=== PATIENT | male | born 1955 | race Caucasian/White ===

== ENCOUNTER 2016-06-24 02:51 | Emergency (ER) | payer MEDICARE, OTHER ==
[2016-06-24 03:02] VITALS: BP 119/69; PULSE 74; RESP 16; TEMP 99.5
[2016-06-24] MEDS ORDERED: SODIUM CHLORIDE 0.9% 500 ML IV STA (03:17)
--- NOTE | 2016-06-24 03:20 | ED ---
General Adult HPI - General Chief complaint: Seizure Stated complaint: poss seizure Time Seen by Provider: 06/24/16 02:55 Source: family, RN notes reviewed Mode of arrival: EMS Limitations: no limitations - History of Present Illness Initial comments: This is a 60-year-old male who presents emergency Department with a past history of Down syndrome and seizures. According to family today he was on his way to the bathroom when he became weak and went down and was unresponsive between 30 seconds 1 minute. Patient was shaking his left leg but family states that doesn't mean anything because he often doesn't when he is nervous. Family states he was completely unresponsive for 30 seconds to 1 minute. Patient did awake after that was not back to his baseline for about 10 minutes according to the family. According to family he is currently at his baseline. They state recently he has been eating and drinking normally. They deny any recent fevers cough or difficulty breathing. He also states he has had no nausea or vomiting. They don't know of any trauma or injury to the patient recently. - Related Data Previous Rx's Medication Instructions Recorded Azithromycin [Zithromax Tri-Wing] 500 mg PO DAILY #3 tab 06/24/16 Allergies Allergy/AdvReac Type Severity Reaction Status Date / Time No Known Allergies Allergy Verified 06/24/16 03:02 Review of Systems ROS Statement: Those systems with pertinent positive or pertinent negative responses have been documented in the HPI. ROS Other: All systems not noted in ROS Statement are negative. Past Medical History Additional Past Medical History / Comment(s): deaf, blind, down syndrome, History of Any Multi-Drug Resistant Organisms: None Reported Additional Past Surgical History / Comment(s): hemerrhoids, Smoking Status: Never smoker Past Alcohol Use History: None Reported Past Drug Use History: None Reported General Exam - General Exam Comments Initial Comments: GENERAL: Patient is well-developed and well-nourished. Patient is nontoxic and well- hydrated and difficult to tell if she is in any distress family states he does not communicate to them at all. ENT: Neck is soft and supple. No significant lymphadenopathy is noted. Oropharynx is clear. Moist mucous membranes. Neck has full range of motion without eliciting any pain. EYES: The sclera were anicteric and conjunctiva were pink and moist. Patient's eyes have a continuous nystagmus PULMONARY: Unlabored respirations. Good breath sounds bilaterally. No audible rales rhonchi or wheezing was noted. CARDIOVASCULAR: There is a regular rate and rhythm without any murmurs gallops or rubs. ABDOMEN: Soft and nontender with normal bowel sounds. No palpable organomegaly was noted. There is no palpable pulsatile mass. SKIN: Skin is clear with no lesions or rashes and otherwise unremarkable. NEUROLOGIC: Patient is awake and not oriented at all.. Cranial nerves II through XII are grossly intact. Motor and sensory are also intact. Normal speech, volume and content. Symmetrical smile. MUSCULOSKELETAL: Normal extremities with adequate strength and full range of motion. No lower extremity swelling or edema. No calf tenderness. LYMPHATICS: No significant lymphadenopathy is noted Limitations: no limitations Course Vital Signs 06/24/16 02:53 Temperature 99.5 F Pulse Rate 74 Respiratory 16 Rate Blood Pressure 119/69 O2 Sat by Pulse 95 Oximetry Medical Decision Making - Medical Decision Making EKG shows sinus rhythm with occasional PVC at 76 bpm WV interval is 140 QRS is 84 QT interval 366 QTC is 411. Patient's EKG shows no ST segment elevation or depression or T-wave abdomen is noted. Chest x-ray shows a possible early infiltrate. I started patient on Rocephin. CT shows no acute abnormality. - Lab Data Result diagrams: 06/24/16 03:44 06/24/16 03:44 Lab Results 06/24/16 06/24/16 06/24/16 Range/Units 03:44 03:44 03:44 WBC 10.5 (3.8-10.6) k/uL RBC 4.49 (4.30-5.90) m/uL Hgb 15.0 (13.0-17.5) gm/dL Hct 43.3 (39.0-53.0) % MCV 96.3 (80.0-100.0) fL MCH 33.3 (25.0-35.0) pg MCHC 34.6 (31.0-37.0) g/dL RDW 14.3 (11.5-15.5) % Plt Count 222 (150-450) k/uL Neutrophils % 82 % Lymphocytes % 11 % Monocytes % 5 % Eosinophils % 1 % Basophils % 1 % Neutrophils # 8.6 H (1.3-7.7) k/uL Lymphocytes # 1.1 (1.0-4.8) k/uL Monocytes # 0.5 (0-1.0) k/uL Eosinophils # 0.1 (0-0.7) k/uL Basophils # 0.1 (0-0.2) k/uL Sodium 139 (137-145) mmol/L Potassium 3.9 (3.5-5.1) mmol/L Chloride 107 (98-107) mmol/L Carbon Dioxide 24 (22-30) mmol/L Anion Gap 8 mmol/L BUN 10 (9-20) mg/dL Creatinine 0.80 (0.66-1.25) mg/dL Est GFR (MDRD) Af Amer >60 (>60 ml/min/1.73 sqM) Est GFR (MDRD) Non-Af >60 (>60 ml/min/1.73 sqM) Glucose 111 H (74-99) mg/dL Plasma Lactic Acid Niels 1.7 (0.7-2.0) mmol/L Calcium 8.8 (8.4-10.2) mg/dL Total Bilirubin 0.6 (0.2-1.3) mg/dL AST 34 (17-59) U/L ALT 21 (21-72) U/L Alkaline Phosphatase 104 (38-126) U/L Total Protein 7.4 (6.3-8.2) g/dL Albumin 3.5 (3.5-5.0) g/dL Urine Color Urine Appearance (Clear) Urine pH (5.0-8.0) Ur Specific [place] (1.001-1.035) Urine Protein (Negative) Urine Glucose (UA) (Negative) Urine Ketones (Negative) Urine Blood (Negative) Urine Nitrite (Negative) Urine Bilirubin (Negative) Urine Urobilinogen (<2.0) mg/dL Ur Leukocyte Esterase (Negative) Urine RBC (0-5) /hpf Urine WBC (0-5) /hpf Hyaline Casts (0-2) /lpf Urine Mucus (None) /hpf Urine Sperm (None) /hpf Influenza Type A RNA (Not Detectd) Influenza Type B (PCR) (Not Detectd) 06/24/16 06/24/16 Range/Units 04:13 04:13 WBC (3.8-10.6) k/uL RBC (4.30-5.90) m/uL Hgb (13.0-17.5) gm/dL Hct (39.0-53.0) % MCV (80.0-100.0) fL MCH (25.0-35.0) pg MCHC (31.0-37.0) g/dL RDW (11.5-15.5) % Plt Count (150-450) k/uL Neutrophils % % Lymphocytes % % Monocytes % % Eosinophils % % Basophils % % Neutrophils # (1.3-7.7) k/uL Lymphocytes # (1.0-4.8) k/uL Monocytes # (0-1.0) k/uL Eosinophils # (0-0.7) k/uL Basophils # (0-0.2) k/uL Sodium (137-145) mmol/L Potassium (3.5-5.1) mmol/L Chloride (98-107) mmol/L Carbon Dioxide (22-30) mmol/L Anion Gap mmol/L BUN (9-20) mg/dL Creatinine (0.66-1.25) mg/dL Est GFR (MDRD) Af Amer (>60 ml/min/1.73 sqM) Est GFR (MDRD) Non-Af (>60 ml/min/1.73 sqM) Glucose (74-99) mg/dL Plasma Lactic Acid Niels (0.7-2.0) mmol/L Calcium (8.4-10.2) mg/dL Total Bilirubin (0.2-1.3) mg/dL AST (17-59) U/L ALT (21-72) U/L Alkaline Phosphatase (38-126) U/L Total Protein (6.3-8.2) g/dL Albumin (3.5-5.0) g/dL Urine Color Yellow Urine Appearance Clear (Clear) Urine pH 6.5 (5.0-8.0) Ur Specific [place] 1.011 (1.001-1.035) Urine Protein Trace H (Negative) Urine Glucose (UA) Negative (Negative) Urine Ketones Negative (Negative) Urine Blood Negative (Negative) Urine Nitrite Negative (Negative) Urine Bilirubin Negative (Negative) Urine Urobilinogen <2.0 (<2.0) mg/dL Ur Leukocyte Esterase Small H (Negative) Urine RBC 1 (0-5) /hpf Urine WBC 3 (0-5) /hpf Hyaline Casts 1 (0-2) /lpf Urine Mucus Rare H (None) /hpf Urine Sperm Occasional H (None) /hpf Influenza Type A RNA Not Detected (Not Detectd) Influenza Type B (PCR) Not Detected (Not Detectd) Disposition Clinical Impression: Pneumonia, Seizure Disposition: HOME SELF-CARE Instructions: Pneumonia (ED) Prescriptions: Azithromycin [Zithromax Tri-Wing] 500 mg PO DAILY #3 tab Referrals: Syed Francis MD [Primary Care Provider] - 1-2 days Time of Disposition: 05:44
[2016-06-24] MEDS ORDERED: IBUPROFEN 600 MG TAB PO STA (03:29)
[2016-06-24] MEDS ORDERED: ACETAMINOPHEN TAB 500 MG TAB PO STA (03:29)
[2016-06-24 04:20] LABS: Basophils # (A) 0.1 k/uL (0-0.2); Basophils % (A) 1 %; CH 33.8; CHCM 35.3; Eosinophils # (A) 0.1 k/uL (0-0.7); Eosinophils % (A) 1 %; HCT 43.3 % (39.0-53.0); HDW 2.82; Luc # (Auto) 0.15; Luc % (Auto) 1; Lymphocytes # (A) 1.1 k/uL (1.0-4.8); Lymphocytes % (A) 11 %; MCH 33.3 pg (25.0-35.0); MCHC 34.6 g/dL (31.0-37.0); MCV 96.3 fL (80.0-100.0); Mean Platelet Volume 7.1; Monocytes # (A) 0.5 k/uL (0-1.0); Monocytes % (A) 5 %; Neutrophils # (A) 8.6 k/uL (1.3-7.7); Neutrophils % (A) 82 %; RBC 4.49 m/uL (4.30-5.90); RDW 14.3 % (11.5-15.5); WBC 10.5 k/uL (3.8-10.6); WBC (Perox) 10.34
[2016-06-24 04:41] LABS: ALT 21 U/L (21-72); AST 34 U/L (17-59); Alkaline Phosphatase 104 U/L (38-126); Anion Gap 8 mmol/L; Blood Urea Nitrogen 10 mg/dL (9-20); Calcium 8.8 mg/dL (8.4-10.2); Carbon Dioxide 24 mmol/L (22-30); Chloride 107 mmol/L (98-107); Glucose 111 mg/dL (74-99); Non-African American GFR(MDRD) >60 (>60 ml/min/1.73 sqM); Potassium 3.9 mmol/L (3.5-5.1); Sodium 139 mmol/L (137-145); Total Bilirubin 0.6 mg/dL (0.2-1.3); Total Protein 7.4 g/dL (6.3-8.2)
[2016-06-24 04:58] LABS: Appearance,Urine Clear (Clear); Bilirubin,Urine Negative (Negative); Glucose,Urine (UA) Negative (Negative); Ketones,Urine Negative (Negative); Leukocyte Esterase,Urine Small (Negative); Mucus,Urine Rare /hpf; Nitrite,Urine Negative (Negative); PH, Urine 6.5 (5.0-8.0); Particle Count 2021; Protein,Urine Trace (Negative); RBC,Urine 1 /hpf (0-5); Specific Gravity,Urine 1.011 (1.001-1.035); Sperm,Urine Occasional /hpf; UA Billing (MACRO vs. MICRO) MICRO; Urobilinogen,Urine <2.0 mg/dL (<2.0); WBC,Urine 3 /hpf (0-5)
--- NOTE | 2016-06-24 05:26 | XR ---
EXAM: XR Chest, 2 Views CLINICAL HISTORY: Difficulty breathing TECHNIQUE: Frontal and lateral views of the chest. COMPARISON: No relevant prior studies available. FINDINGS: Lungs: Small amount airspace opacities with central distribution in left lung, especially upper lobe, suggest pneumonia versus asymmetric pulmonary edema. Pleural space: Unremarkable. No pneumothorax. Heart: Unremarkable. No cardiomegaly. Mediastinum: Unremarkable. Bones/joints: Unremarkable. IMPRESSION: Small amount airspace opacities with central distribution in left lung, especially upper lobe, suggest pneumonia versus asymmetric pulmonary edema.
--- NOTE | 2016-06-24 05:35 | CT ---
EXAM: CT Head Without Intravenous Contrast CLINICAL HISTORY: Reason: seizure activity TECHNIQUE: Axial computed tomography images of the head/brain without intravenous contrast. CTDI is 57.4 mGy and DLP is 1029.9 mGy-cm This CT exam was performed using one or more of the following dose reduction techniques: automated exposure control, adjustment of the mA and/or kV according to patient size, and/or use of iterative reconstruction technique. Coronal and sagittal reconstructions are performed COMPARISON: No relevant prior studies available. FINDINGS: Limitations: Motion artifact slightly decreases the sensitivity of this exam. Brain: 2.5 cm subarachnoid cyst in the region of the sinus confluence. No hemorrhage. No edema. Large amount of symmetrical Mineralization in bilateral basal ganglia and cerebellum, nonspecific. Ventricles: Cavum septum pellucidum. Bones/joints: Unremarkable. No acute fracture. Soft tissues: Unremarkable. Sinuses: Unremarkable as visualized. No acute sinusitis. Mastoid air cells: Unremarkable as visualized. No mastoid effusion. IMPRESSION: No intracranial hemorrhage. Large amount of symmetrical Mineralization in bilateral basal ganglia and cerebellum, nonspecific. Differential includes parathyroid disorders, Fahr disease, toxic exposure such as lead or carbon monoxide. Please correlate with metabolic workup.
== END 2016-06-24 06:20 | disposition home or self-care (01) ==
LOC: EC 02:51
DX: J18.9 Pneumonia, unspecified organism (principal); R56.9 Unspecified convulsions
CPT/HCPCS: 99285; 96365; 36415; 93005; 80053; 83605; 85025; 81001; 87040; 87502; 71020; 70450; J0696

== ENCOUNTER 2017-02-27 12:43 | Emergency (ER) | payer MEDICARE, OTHER ==
[2017-02-27] MEDS ORDERED: SODIUM CHLORIDE 0.9% 1,000 ML IV STA (12:59)
[2017-02-27] MEDS ORDERED: RX INFO: IV CONTRAST WAS GIVEN 1 EACH MISC MISCELLANE PRN (12:59)
[2017-02-27 13:07] LABS: Glucose,Whole Blood 92 mg/dL (75-99)
--- NOTE | 2017-02-27 13:08 | ED ---
General Adult HPI - General Chief complaint: Altered Mental Status Stated complaint: Altered Mental/Left sided weakness Time Seen by Provider: 02/27/17 12:56 Source: patient, family, RN notes reviewed, old records reviewed Mode of arrival: wheelchair Limitations: no limitations - History of Present Illness Initial comments: This is a 61-year-old male to the ER for evaluation. Patient thousand. Patient 's coming in for neurological complaints. Left-sided weakness. Patient have also falls morning when he woke and hit his head complaining of headache and foot pain. Patient had no prior history of trauma was normal elective by last night and weak when he woke up this morning. - Related Data Home Medications Medication Instructions Recorded Confirmed Aspirin 325 mg PO DAILY PRN 02/27/17 02/27/17 Docusate [Colace] 200 mg PO HS 02/27/17 02/27/17 Inulin/Chromium Picolinate [Fiber 1 tab PO DAILY 02/27/17 02/27/17 Gummies Chew] Levothyroxine Sodium [Synthroid] 112 mcg PO DAILY 02/27/17 02/27/17 Multivitamins, Thera [Multivitamin 1 tab PO DAILY 02/27/17 02/27/17 (formulary)] Omeprazole 20 mg PO BID 02/27/17 02/27/17 QUEtiapine FUMARATE [SEROquel] 37.5 mg PO HS 02/27/17 02/27/17 Allergies Allergy/AdvReac Type Severity Reaction Status Date / Time No Known Allergies Allergy Verified 02/27/17 13:48 Review of Systems ROS Statement: Those systems with pertinent positive or pertinent negative responses have been documented in the HPI. ROS Other: All systems not noted in ROS Statement are negative. Past Medical History Additional Past Medical History / Comment(s): deaf, blind, down syndrome, History of Any Multi-Drug Resistant Organisms: None Reported Additional Past Surgical History / Comment(s): hemerrhoids, Past Psychological History: No Psychological Hx Reported Smoking Status: Never smoker Past Alcohol Use History: None Reported Past Drug Use History: None Reported General Exam - General Exam Comments Initial Comments: NIH is unable to obtain secondary to mental state Limitations: no limitations General appearance: alert, in no apparent distress Head exam: Present: atraumatic, normocephalic, normal inspection Eye exam: Present: normal appearance, PERRL, EOMI. Absent: scleral icterus, conjunctival injection, periorbital swelling ENT exam: Present: normal exam, mucous membranes moist Neck exam: Present: normal inspection. Absent: tenderness, meningismus, lymphadenopathy Respiratory exam: Present: normal lung sounds bilaterally. Absent: respiratory distress, wheezes, rales, rhonchi, stridor Cardiovascular Exam: Present: regular rate, normal rhythm, normal heart sounds. Absent: systolic murmur, diastolic murmur, rubs, gallop, clicks GI/Abdominal exam: Present: soft, normal bowel sounds. Absent: distended, tenderness, guarding, rebound, rigid Extremities exam: Present: normal inspection, full ROM, normal capillary refill. Absent: tenderness, pedal edema, joint swelling, calf tenderness Back exam: Present: normal inspection Neurological exam: Present: alert, oriented X3, CN II-XII intact Psychiatric exam: Present: normal affect, normal mood Skin exam: Present: warm, dry, intact, normal color. Absent: rash Course Vital Signs 02/27/17 02/27/17 02/27/17 12:53 13:00 15:07 Temperature 97.5 F L Pulse Rate 69 69 Respiratory 20 16 Rate Blood Pressure 110/58 103/55 O2 Sat by Pulse 100 98 Oximetry - Reevaluation(s) Reevaluation #1: 02/27/17 14:14 Patient is not a TPA candidate secondary to onset of symptoms prior to bed last night Reevaluation #2: 02/27/17 15:[address] Rivera who spoke with family who agree discharged home with follow- up in the office is at best course of therapy EKG Findings - EKG Comments: EKG Findings:: EKG shows normal sinus rhythm rate of 67, MO 132, QRS 82, QTc 412 Medical Decision Making - Medical Decision Making 61 male to ER for evaluation of altered mental status. Patient's symptoms relax and remit, no specific exam findings found. 80 is normal patient can be discharged home - Lab Data Result diagrams: 02/27/17 13:09 02/27/17 13:09 Lab Results 02/27/17 02/27/17 02/27/17 Range/Units 13:05 13:09 13:09 WBC 5.9 (3.8-10.6) k/uL RBC 4.38 (4.30-5.90) m/uL Hgb 13.4 (13.0-17.5) gm/dL Hct 43.3 (39.0-53.0) % MCV 98.8 (80.0-100.0) fL MCH 30.6 (25.0-35.0) pg MCHC 31.0 (31.0-37.0) g/dL RDW 16.2 H (11.5-15.5) % Plt Count 568 H (150-450) k/uL Neutrophils % 58 % Lymphocytes % 30 % Monocytes % 7 % Eosinophils % 1 % Basophils % 1 % Neutrophils # 3.4 (1.3-7.7) k/uL Lymphocytes # 1.8 (1.0-4.8) k/uL Monocytes # 0.4 (0-1.0) k/uL Eosinophils # 0.1 (0-0.7) k/uL Basophils # 0.0 (0-0.2) k/uL Anisocytosis Slight Macrocytosis Slight PT (9.0-12.0) sec INR (<1.2) APTT (22.0-30.0) sec Sodium (137-145) mmol/L Potassium (3.5-5.1) mmol/L Chloride (98-107) mmol/L Carbon Dioxide (22-30) mmol/L Anion Gap mmol/L BUN (9-20) mg/dL Creatinine (0.66-1.25) mg/dL Est GFR (MDRD) Af Amer (>60 ml/min/1.73 sqM) Est GFR (MDRD) Non-Af (>60 ml/min/1.73 sqM) Glucose (74-99) mg/dL POC Glucose (mg/dL) 92 (75-99) mg/dL POC Glu Maxillofacial Prosthetics Dentist ID Darin, Mitra Calcium (8.4-10.2) mg/dL Phosphorus (2.5-4.5) mg/dL Magnesium (1.6-2.3) mg/dL Total Bilirubin (0.2-1.3) mg/dL AST (17-59) U/L ALT (21-72) U/L Alkaline Phosphatase (38-126) U/L Total Creatine Kinase 32 L (55-170) U/L CK-MB (CK-2) 1.6 (0.0-2.4) ng/mL CK-MB (CK-2) Rel Index 5.0 Troponin I 0.023 (0.000-0.034) ng/mL Total Protein (6.3-8.2) g/dL Albumin (3.5-5.0) g/dL 02/27/17 02/27/17 Range/Units 13:09 13:09 WBC (3.8-10.6) k/uL RBC (4.30-5.90) m/uL Hgb (13.0-17.5) gm/dL Hct (39.0-53.0) % MCV (80.0-100.0) fL MCH (25.0-35.0) pg MCHC (31.0-37.0) g/dL RDW (11.5-15.5) % Plt Count (150-450) k/uL Neutrophils % % Lymphocytes % % Monocytes % % Eosinophils % % Basophils % % Neutrophils # (1.3-7.7) k/uL Lymphocytes # (1.0-4.8) k/uL Monocytes # (0-1.0) k/uL Eosinophils # (0-0.7) k/uL Basophils # (0-0.2) k/uL Anisocytosis Macrocytosis PT 10.3 (9.0-12.0) sec INR 1.1 (<1.2) APTT 24.0 (22.0-30.0) sec Sodium 142 (137-145) mmol/L Potassium 4.6 (3.5-5.1) mmol/L Chloride 108 H (98-107) mmol/L Carbon Dioxide 27 (22-30) mmol/L Anion Gap 7 mmol/L BUN 16 (9-20) mg/dL Creatinine 1.07 (0.66-1.25) mg/dL Est GFR (MDRD) Af Amer >60 (>60 ml/min/1.73 sqM) Est GFR (MDRD) Non-Af >60 (>60 ml/min/1.73 sqM) Glucose 90 (74-99) mg/dL POC Glucose (mg/dL) (75-99) mg/dL POC Glu Maxillofacial Prosthetics Dentist ID Calcium 8.9 (8.4-10.2) mg/dL Phosphorus 3.8 (2.5-4.5) mg/dL Magnesium 2.2 (1.6-2.3) mg/dL Total Bilirubin 0.2 (0.2-1.3) mg/dL AST 33 (17-59) U/L ALT 39 (21-72) U/L Alkaline Phosphatase 153 H (38-126) U/L Total Creatine Kinase (55-170) U/L CK-MB (CK-2) (0.0-2.4) ng/mL CK-MB (CK-2) Rel Index Troponin I (0.000-0.034) ng/mL Total Protein 7.4 (6.3-8.2) g/dL Albumin 3.2 L (3.5-5.0) g/dL - Radiology Data Radiology results: report reviewed (CT brain chest x-ray negative for acute disease), image reviewed Disposition Clinical Impression: Altered mental status, Fall Disposition: HOME SELF-CARE Condition: Good Instructions: Altered Mental Status (ED) Referrals: Syed Francis MD [Primary Care Provider] - 1-2 days
[2017-02-27 13:41] LABS: ALT 39 U/L (21-72); AST 33 U/L (17-59); Albumin 3.2 g/dL (3.5-5.0); Alkaline Phosphatase 153 U/L (38-126); Anion Gap 7 mmol/L; Blood Urea Nitrogen 16 mg/dL (9-20); Calcium 8.9 mg/dL (8.4-10.2); Carbon Dioxide 27 mmol/L (22-30); Chloride 108 mmol/L (98-107); Glucose 90 mg/dL (74-99); Magnesium 2.2 mg/dL (1.6-2.3); Phosphorus 3.8 mg/dL (2.5-4.5); Potassium 4.6 mmol/L (3.5-5.1); Sodium 142 mmol/L (137-145); Total Bilirubin 0.2 mg/dL (0.2-1.3); Total Protein 7.4 g/dL (6.3-8.2)
[2017-02-27 13:42] LABS: Anisocytosis Slight; Basophils % (A) 1 %; Eosinophils # (A) 0.1 k/uL (0-0.7); Eosinophils % (A) 1 %; HCT 43.3 % (39.0-53.0); HGB 13.4 gm/dL (13.0-17.5); Lymphocytes # (A) 1.8 k/uL (1.0-4.8); Lymphocytes % (A) 30 %; MCH 30.6 pg (25.0-35.0); MCV 98.8 fL (80.0-100.0); Macrocytosis Slight; Mean Platelet Volume 7.6; Monocytes # (A) 0.4 k/uL (0-1.0); Monocytes % (A) 7 %; Neutrophils # (A) 3.4 k/uL (1.3-7.7); Neutrophils % (A) 58 %; Platelet Count 568 k/uL (150-450); RBC 4.38 m/uL (4.30-5.90); RDW 16.2 % (11.5-15.5); WBC 5.9 k/uL (3.8-10.6)
[2017-02-27 13:50] LABS: INR 1.1 (<1.2); Prothrombin Time 10.3 sec (9.0-12.0)
[2017-02-27 14:02] LABS: Creatine Kinase MB 1.6 ng/mL (0.0-2.4); Troponin I 0.023 ng/mL (0.000-0.034)
--- NOTE | 2017-02-27 14:35 | CT ---
EXAMINATION TYPE: CT brain wo con DATE OF EXAM: 02/27/2017 COMPARISON: 06/24/2016 HISTORY: Lt side weakness CT DLP: 1054.2 mGycm Automated exposure control for dose reduction was used. FINDINGS: Ventricles of normal size. There is dense calcification in the basal ganglia bilaterally. There is al so calcification at the corticomedullary junction of both cerebellar hemispheres. There is no midline shift. There is no sign of intracranial hemorrhage. The calvarium is intact. IMPRESSION: SYMMETRIC CEREBRAL PARENCHYMAL CALCIFICATION. NO ACUTE INTRACRANIAL ABNORMALITY. NO CHANGE.
--- NOTE | 2017-02-27 14:38 | CT ---
EXAMINATION TYPE: CT angio head neck DATE OF EXAM: 02/27/2017 HISTORY: Lt side weakness COMPARISON: NONE CT DLP: 200.5 mGycm. Automated Exposure Control for Dose Reduction was Utilized. TECHNIQUE: CTA scan of the neck is performed with IV Contrast, patient injected with 65 mL of Omnipa que 350, axial images are obtained, coronal and sagittal reformatted images are reviewed. Three-D rec onstructed images are created on an independent workstation and reviewed. FINDINGS: There is arterial flow in both distal internal carotid arteries. There is arterial flow in the verteb robasilar artery system. There is arterial flow in the anterior middle and posterior cerebral arterie s. I see no evidence of aneurysm or neovascularity. There is no mass effect. There is normal branching pattern of the great vessels on the aortic arch. There is bilateral arteria l flow in the common internal and external carotid arteries. There is arterial flow flow in the verte bral arteries. Right vertebral artery is larger than the left. I see no evidence of aneurysm or neova scularity. There is no evidence of dissection. There is wide patency of the carotid artery bifurcatio ns. There is normal contrast opacification of the venous sinuses. CONCLUSION: Negative CT angiogram of the neck. Negative CT angiogram of the brain.
--- NOTE | 2017-02-27 14:45 | XR ---
EXAMINATION TYPE: XR chest 2V DATE OF EXAM: 02/27/2017 COMPARISON: 06/24/2016 HISTORY: Weakness TECHNIQUE: Frontal and lateral views of the chest are obtained. FINDINGS: There is no heart failure nor confluent pneumonic infiltrate. Costophrenic angles are chacho r. Bony thorax is intact. There are chest leads. This site coarsening of interstitial markings. IMPRESSION: Mild pulmonary fibrotic changes. No acute lung disease. No change.
[2017-02-27 15:47] VITALS: BP 120/80; PULSE 65; RESP 20; TEMP 98.7
== END 2017-02-27 15:30 | disposition home or self-care (01) ==
LOC: EC 12:43
DX: R41.82 Altered mental status, unspecified (principal); R53.1 Weakness; R51 Headache; M79.673 Pain in unspecified foot; H91.90 Unspecified hearing loss, unspecified ear; H54.7 Unspecified visual loss; Z79.899 Other long term (current) drug therapy; W19.XXXA Unspecified fall, initial encounter
CPT/HCPCS: 36415; 80053; 82550; 82553; 83735; 84100; 84484; 85025; 85610; 85730; 71020; 70496; 70450; 70498; 99285; 96360; Q9967; 93005

== ENCOUNTER → 2017-03-16 | Outpatient (CLI) | payer MEDICARE, OTHER ==
[2017-03-16 09:04] LABS: Basophils # (A) 0.1 k/uL (0-0.2); Basophils % (A) 1 %; Eosinophils # (A) 0.2 k/uL (0-0.7); Eosinophils % (A) 3 %; HCT 42.5 % (39.0-53.0); HGB 13.5 gm/dL (13.0-17.5); Lymphocytes # (A) 2.2 k/uL (1.0-4.8); Lymphocytes % (A) 30 %; MCH 31.1 pg (25.0-35.0); MCHC 31.7 g/dL (31.0-37.0); MCV 98.1 fL (80.0-100.0); Mean Platelet Volume 7.3; Monocytes # (A) 0.4 k/uL (0-1.0); Monocytes % (A) 6 %; Neutrophils # (A) 4.3 k/uL (1.3-7.7); Neutrophils % (A) 58 %; Platelet Count 357 k/uL (150-450); RBC 4.33 m/uL (4.30-5.90); RDW 15.6 % (11.5-15.5); WBC 7.4 k/uL (3.8-10.6)
[2017-03-16 10:08] LABS: ALT 40 U/L (21-72); AST 32 U/L (17-59); Albumin 3.2 g/dL (3.5-5.0); Alkaline Phosphatase 125 U/L (38-126); Anion Gap 8 mmol/L; Blood Urea Nitrogen 14 mg/dL (9-20); Calcium 8.9 mg/dL (8.4-10.2); Carbon Dioxide 31 mmol/L (22-30); Chloride 107 mmol/L (98-107); Cholesterol 176 mg/dL (<200); Glucose 89 mg/dL (74-99); HDL Cholesterol 28 mg/dL (40-60); LDL Cholesterol,Calculated 112 mg/dL (0-99); Potassium 4.2 mmol/L (3.5-5.1); Sodium 146 mmol/L (137-145); Total Bilirubin 0.3 mg/dL (0.2-1.3); Total Protein 7.4 g/dL (6.3-8.2); Triglycerides 181 mg/dL (<150)
[2017-03-16 10:12] LABS: Valproic Acid (Depakene) 11.6 ug/mL
[2017-03-16 18:52] LABS: Hemoglobin A1C 6.1 % (4.0-6.0)
== END | disposition home or self-care (01) ==
LOC: LABWHC1 08:10
PROVIDERS: ATTEND Nurse Practitioner
DX: Z51.81 Encounter for therapeutic drug level monitoring (principal); F02.81 Dementia in other diseases classified elsewhere, unspecified severity, with behavioral disturbance; Z79.899 Other long term (current) drug therapy
CPT/HCPCS: 36415; 80053; 80061; 80164; 83036; 85025

== ENCOUNTER 2018-05-15 10:33 | Emergency (ER) | payer MEDICARE, OTHER ==
[2018-05-15] MEDS ORDERED: SODIUM CHLORIDE 0.9% 1,000 ML IV ONE ×2 (11:09)
[2018-05-15 11:20] LABS: Basophils % (A) 0 %; Eosinophils # (A) 0.1 k/uL (0-0.7); Eosinophils % (A) 2 %; HCT 51.1 % (39.0-53.0); HGB 16.4 gm/dL (13.0-17.5); Lymphocytes # (A) 0.7 k/uL (1.0-4.8); Lymphocytes % (A) 10 %; MCH 32.7 pg (25.0-35.0); MCHC 32.2 g/dL (31.0-37.0); MCV 101.7 fL (80.0-100.0); Macrocytosis Slight; Mean Platelet Volume 6.5; Monocytes # (A) 0.3 k/uL (0-1.0); Monocytes % (A) 5 %; Neutrophils # (A) 5.5 k/uL (1.3-7.7); Neutrophils % (A) 81 %; Platelet Count 225 k/uL (150-450); RBC 5.02 m/uL (4.30-5.90); RDW 14.8 % (11.5-15.5); WBC 6.7 k/uL (3.8-10.6)
[2018-05-15 11:28] LABS: INR 0.9 (<1.2); Partial Thromboplastin Time 24.5 sec (22.0-30.0)
[2018-05-15 11:29] LABS: Albumin 3.9 g/dL (3.5-5.0); Potassium 4.5 mmol/L (3.5-5.1); Total Bilirubin 0.4 mg/dL (0.2-1.3); Total Protein 8.2 g/dL (6.3-8.2)
--- NOTE | 2018-05-15 11:33 | ED ---
General Adult HPI - General Chief complaint: Nausea/Vomiting/Diarrhea Stated complaint: diarrhea Time Seen by Provider: 05/15/18 10:54 Source: family, RN notes reviewed, Caregiver Mode of arrival: wheelchair Limitations: no limitations - History of Present Illness Initial comments: This a 62-year-old male presents emergency Department with sister and caregiver chief complaint of dehydration, diarrhea. He states that he's had extreme diarrhea over the last 24 hours and states it's straight water. There's been no melena or hematochezia. Patient has not been on any antibiotics no risk factors for C. diff. Patient does have underlying Down syndrome lips is normally verbal. He states that he is less verbal than usual and more lethargic. They state that he try to take a shower when he was so weak that he cannot stand on his legs. They do admit that he's been complaining of left hip pain with no trauma. Patient had no head injury. Patient does have a history of hypothyroidism and seizures. Caregiver states that he was very weak and was nearly passing out but there is no exact seizure-like activity. - Related Data Home Medications Medication Instructions Recorded Confirmed Docusate [Colace] 200 mg PO HS 02/27/17 05/15/18 Inulin/Chromium Picolinate [Fiber 1 tab PO DAILY 02/27/17 05/15/18 Gummies Chew] Levothyroxine Sodium [Synthroid] 112 mcg PO DAILY 02/27/17 05/15/18 Multivitamins, Thera [Multivitamin 1 tab PO DAILY 02/27/17 05/15/18 (formulary)] Omeprazole 20 mg PO BID 02/27/17 05/15/18 Divalproex [Depakote] 250 mg PO BID 05/15/18 05/15/18 QUEtiapine [SEROquel] 50 mg PO HS 05/15/18 05/15/18 Allergies Allergy/AdvReac Type Severity Reaction Status Date / Time No Known Allergies Allergy Verified 05/15/18 11:05 Review of Systems ROS Statement: Those systems with pertinent positive or pertinent negative responses have been documented in the HPI. ROS Other: All systems not noted in ROS Statement are negative. Past Medical History Additional Past Medical History / Comment(s): deaf, blind, down syndrome, History of Any Multi-Drug Resistant Organisms: None Reported Additional Past Surgical History / Comment(s): hemerrhoids, Past Psychological History: No Psychological Hx Reported Smoking Status: Never smoker Past Alcohol Use History: None Reported Past Drug Use History: None Reported General Exam Limitations: no limitations General appearance: alert, in no apparent distress Head exam: Present: atraumatic, normocephalic, normal inspection Eye exam: Present: PERRL. Absent: normal appearance (cloudy, white), scleral icterus, conjunctival injection, periorbital swelling ENT exam: Present: normal exam, normal oropharynx, mucous membranes moist Neck exam: Present: normal inspection. Absent: tenderness, meningismus, lymphadenopathy Respiratory exam: Present: normal lung sounds bilaterally. Absent: respiratory distress, wheezes, rales, rhonchi, stridor Cardiovascular Exam: Present: regular rate, normal rhythm, normal heart sounds. Absent: systolic murmur, diastolic murmur, rubs, gallop, clicks GI/Abdominal exam: Present: soft, normal bowel sounds. Absent: distended, tenderness, guarding, rebound, rigid Extremities exam: Present: other (Left hip mild pain with range of motion, no erythema no increased warmth pedal pulses equal bilaterally) Neurological exam: Present: alert. Absent: oriented X3 Skin exam: Present: warm, dry, intact, normal color. Absent: rash Course Vital Signs 05/15/18 05/15/18 05/15/18 10:47 11:15 12:23 Temperature 97.4 F L Pulse Rate 81 69 75 Respiratory 18 18 16 Rate Blood Pressure 70/47 89/59 99/67 O2 Sat by Pulse 94 L 96 97 Oximetry EKG Findings - EKG Comments: EKG Findings:: EKG performed at 11:15 no sinus rhythm with rate of 78 MA 144 QRS 84 QT/QTC 398/429 Medical Decision Making - Medical Decision Making 62-year-old male presented from a caregiver and family for diarrhea, concern of dehydration. Patient was hydrated with 2 L of fluid after lab work was drawn. Patient's labs are unremarkable. Patient had CT of his brain today felt that he was more lethargic CT is unremarkable, x-rays are negative. Patient's blood pressure has improved after IV hydration. We discussed admitting the patient for IV hydration family feels that he is okay for discharge and would rather try outpatient hydration and return for any worsening symptoms. Patient in family and caregiver all in agreement of plan. - Lab Data Result diagrams: 05/15/18 11:05 05/15/18 11:05 Lab Results 05/15/18 05/15/18 05/15/18 Range/Units 11:05 11:05 11:05 WBC 6.7 (3.8-10.6) k/uL RBC 5.02 (4.30-5.90) m/uL Hgb 16.4 (13.0-17.5) gm/dL Hct 51.1 (39.0-53.0) % MCV 101.7 H (80.0-100.0) fL MCH 32.7 (25.0-35.0) pg MCHC 32.2 (31.0-37.0) g/dL RDW 14.8 (11.5-15.5) % Plt Count 225 (150-450) k/uL Neutrophils % 81 % Lymphocytes % 10 % Monocytes % 5 % Eosinophils % 2 % Basophils % 0 % Neutrophils # 5.5 (1.3-7.7) k/uL Lymphocytes # 0.7 L (1.0-4.8) k/uL Monocytes # 0.3 (0-1.0) k/uL Eosinophils # 0.1 (0-0.7) k/uL Basophils # 0.0 (0-0.2) k/uL Macrocytosis Slight PT (9.0-12.0) sec INR (<1.2) APTT (22.0-30.0) sec Sodium 141 (137-145) mmol/L Potassium 4.5 (3.5-5.1) mmol/L Chloride 107 (98-107) mmol/L Carbon Dioxide 25 (22-30) mmol/L Anion Gap 9 mmol/L BUN 15 (9-20) mg/dL Creatinine 1.08 (0.66-1.25) mg/dL Est GFR (CKD-EPI)AfAm 86 (>60 ml/min/1.73 sqM) Est GFR (CKD-EPI)NonAf 74 (>60 ml/min/1.73 sqM) Glucose 129 H (74-99) mg/dL POC Glucose (mg/dL) (75-99) mg/dL POC Glu Medical Referral Coordinator ID Plasma Lactic Acid Niels (0.7-2.0) mmol/L Calcium 9.0 (8.4-10.2) mg/dL Total Bilirubin 0.4 (0.2-1.3) mg/dL AST 28 (17-59) U/L ALT 33 (21-72) U/L Alkaline Phosphatase 104 (38-126) U/L Ammonia <9 (<30) umol/L Creatine Kinase 56 (55-170) U/L Troponin I (0.000-0.034) ng/mL Total Protein 8.2 (6.3-8.2) g/dL Albumin 3.9 (3.5-5.0) g/dL 05/15/18 05/15/18 05/15/18 Range/Units 11:05 11:05 11:05 WBC (3.8-10.6) k/uL RBC (4.30-5.90) m/uL Hgb (13.0-17.5) gm/dL Hct (39.0-53.0) % MCV (80.0-100.0) fL MCH (25.0-35.0) pg MCHC (31.0-37.0) g/dL RDW (11.5-15.5) % Plt Count (150-450) k/uL Neutrophils % % Lymphocytes % % Monocytes % % Eosinophils % % Basophils % % Neutrophils # (1.3-7.7) k/uL Lymphocytes # (1.0-4.8) k/uL Monocytes # (0-1.0) k/uL Eosinophils # (0-0.7) k/uL Basophils # (0-0.2) k/uL Macrocytosis PT 10.0 (9.0-12.0) sec INR 0.9 (<1.2) APTT 24.5 (22.0-30.0) sec Sodium (137-145) mmol/L Potassium (3.5-5.1) mmol/L Chloride (98-107) mmol/L Carbon Dioxide (22-30) mmol/L Anion Gap mmol/L BUN (9-20) mg/dL Creatinine (0.66-1.25) mg/dL Est GFR (CKD-EPI)AfAm (>60 ml/min/1.73 sqM) Est GFR (CKD-EPI)NonAf (>60 ml/min/1.73 sqM) Glucose (74-99) mg/dL POC Glucose (mg/dL) (75-99) mg/dL POC Glu Medical Referral Coordinator ID Plasma Lactic Acid Niels 1.5 (0.7-2.0) mmol/L Calcium (8.4-10.2) mg/dL Total Bilirubin (0.2-1.3) mg/dL AST (17-59) U/L ALT (21-72) U/L Alkaline Phosphatase (38-126) U/L Ammonia (<30) umol/L Creatine Kinase (55-170) U/L Troponin I <0.012 (0.000-0.034) ng/mL Total Protein (6.3-8.2) g/dL Albumin (3.5-5.0) g/dL 05/15/18 Range/Units 11:19 WBC (3.8-10.6) k/uL RBC (4.30-5.90) m/uL Hgb (13.0-17.5) gm/dL Hct (39.0-53.0) % MCV (80.0-100.0) fL MCH (25.0-35.0) pg MCHC (31.0-37.0) g/dL RDW (11.5-15.5) % Plt Count (150-450) k/uL Neutrophils % % Lymphocytes % % Monocytes % % Eosinophils % % Basophils % % Neutrophils # (1.3-7.7) k/uL Lymphocytes # (1.0-4.8) k/uL Monocytes # (0-1.0) k/uL Eosinophils # (0-0.7) k/uL Basophils # (0-0.2) k/uL Macrocytosis PT (9.0-12.0) sec INR (<1.2) APTT (22.0-30.0) sec Sodium (137-145) mmol/L Potassium (3.5-5.1) mmol/L Chloride (98-107) mmol/L Carbon Dioxide (22-30) mmol/L Anion Gap mmol/L BUN (9-20) mg/dL Creatinine (0.66-1.25) mg/dL Est GFR (CKD-EPI)AfAm (>60 ml/min/1.73 sqM) Est GFR (CKD-EPI)NonAf (>60 ml/min/1.73 sqM) Glucose (74-99) mg/dL POC Glucose (mg/dL) 112 H (75-99) mg/dL POC Glu Medical Referral Coordinator ID Juan aPblomay Plasma Lactic Acid Niels (0.7-2.0) mmol/L Calcium (8.4-10.2) mg/dL Total Bilirubin (0.2-1.3) mg/dL AST (17-59) U/L ALT (21-72) U/L Alkaline Phosphatase (38-126) U/L Ammonia (<30) umol/L Creatine Kinase (55-170) U/L Troponin I (0.000-0.034) ng/mL Total Protein (6.3-8.2) g/dL Albumin (3.5-5.0) g/dL Disposition Clinical Impression: Dehydration, Diarrhea Disposition: HOME SELF-CARE Condition: Stable Instructions (If sedation given, give patient instructions): Acute Diarrhea (ED) Additional Instructions: Please return to the Emergency Department if symptoms worsen or any other concerns. Is patient prescribed a controlled substance at d/c from ED?: No Referrals: Marko Gonzales MD [Primary Care Provider] - 1-2 days
[2018-05-15 11:38] LABS: Glucose,Whole Blood 112 mg/dL (75-99)
--- NOTE | 2018-05-15 11:51 | CT ---
EXAMINATION TYPE: CT brain wo con DATE OF EXAM: 05/15/2018 COMPARISON: Prior CT brain 02/27/2017 HISTORY: Altered mental status, possible seizure CT DLP: 1044.4 mGycm Automated exposure control for dose reduction was used. Helical acquisition through the brain. FINDINGS: No significant interval change. Dense calcifications present along the cerebellar hemispheres, basal ganglia, periventricular white matter as on prior. No hemorrhage or hydrocephalus. Probable arachnoid cyst at the level of the posterior fossa, there is some atrophy of the cerebellum, magna cisterna ma gna noted. There is a partially empty sella. There are cerebral vascular calcifications. Inflammatory changes are present within the maxillary sinuses, calvarium is intact. IMPRESSION: CORRELATE FOR HYPERCALCEMIC STATES, BRAIN CALCIFICATION SHOWS A SIMILAR APPEARANCE TO PRIOR EXAM. No acute abnormality. Additional findings above.
--- NOTE | 2018-05-15 11:53 | XR ---
EXAMINATION TYPE: XR chest 2V DATE OF EXAM: 05/15/2018 COMPARISON: Prior chest x-ray dated 02/27/2017 HISTORY: Altered mental status TECHNIQUE: Frontal and lateral views of the chest are obtained. FINDINGS: There are cardiac leads. Patient is rotated. There is no focal air space opacity, pleural e ffusion, or pneumothorax seen. The cardiac silhouette size is within normal limits. The osseous st ructures are intact. IMPRESSION: No acute cardiopulmonary process.
--- NOTE | 2018-05-15 11:56 | XR ---
EXAMINATION TYPE: XR Hip LT and AP Pelvis DATE OF EXAM: 05/15/2018 COMPARISON: NONE HISTORY: Pain, altered mental status TECHNIQUE: 2 frontal AP views of the pelvis obtained. Two views of the left hip are obtained. FINDINGS: Patient is rotated. There is no acute fracture/dislocation evident in the pelvis. The hip and sacroiliac joints appear symmetric and unremarkable. The overlying soft tissue appears unremark able. Two views of left hip show no acute fracture or dislocation although patient is rotated. No focal ly tic or sclerotic lesion seen in the proximal left femur. The overlying soft tissue is unremarkable. IMPRESSION: There is no acute fracture or dislocation in the pelvis or left hip. Follow-up as indica zainab, patient is rotated
[2018-05-15 12:24] VITALS: BP 99/67
[2018-05-15 14:23] VITALS: PULSE 96; RESP 18; TEMP 98.3
== END 2018-05-15 14:21 | disposition home or self-care (01) ==
LOC: EC 10:33
DX: E86.0 Dehydration (principal); R19.7 Diarrhea, unspecified; M25.552 Pain in left hip; R53.1 Weakness; Q90.9 Down syndrome, unspecified; H91.3 Deaf nonspeaking, not elsewhere classified; H54.7 Unspecified visual loss; E03.9 Hypothyroidism, unspecified; Z79.890 Hormone replacement therapy; Z79.899 Other long term (current) drug therapy; Z86.69 Personal history of other diseases of the nervous system and sense organs
CPT/HCPCS: 36415; 70450; 71046; 73502; 80053; 82140; 82550; 83605; 84484; 85025; 85610; 85730; 93005; 96360; 96361; 99284

== ENCOUNTER 2018-09-04 20:59 | Emergency (ER) | payer MEDICARE, OTHER ==
[2018-09-04 21:12] VITALS: RESP 18
[2018-09-04] MEDS ORDERED: SODIUM CHLORIDE 0.9% 1,000 ML IV STA (21:28)
--- NOTE | 2018-09-04 21:28 | ED ---
General Adult HPI - General Chief complaint: Nausea/Vomiting/Diarrhea Stated complaint: Diarrhea Time Seen by Provider: 09/04/18 21:27 Source: family Mode of arrival: ambulatory Limitations: altered mental status, physical limitation - History of Present Illness Initial comments: Nate is a 62 -year-old woman with history of Down syndrome, blindness, hard of hearing, minimally verbal who is brought [facility] the [facility] department [facility] for evaluation of diarrhea and a fall. Caregivers report that Nate is had diarrhea throughout the day today he's had multiple episodes of loose nonbloody stools. We also note that he refused to eat dinner and this is very atypical for him as he is usually very food motivated. Caregivers also not e that Nate had an apparent fall in his bedroom today. It was not witnessed they did note that he had a little abrasion to the top of his head. They do not believe he lost consciousness he seems to be at his baseline mental status since the fall. On exam patient is able to say yes or no and asked simple questions. When asked if he has any abdominal pain he says no and then he asked for a coke. - Related Data Home Medications Medication Instructions Recorded Confirmed Docusate [Colace] 200 mg PO HS 02/27/17 05/15/18 Inulin/Chromium Picolinate [Fiber 1 tab PO DAILY 02/27/17 05/15/18 Gummies Chew] Levothyroxine Sodium [Synthroid] 112 mcg PO DAILY 02/27/17 05/15/18 Multivitamins, Thera [Multivitamin 1 tab PO DAILY 02/27/17 05/15/18 (formulary)] Omeprazole 20 mg PO BID 02/27/17 05/15/18 Divalproex [Depakote] 250 mg PO BID 05/15/18 05/15/18 QUEtiapine [SEROquel] 50 mg PO HS 05/15/18 05/15/18 Allergies Allergy/AdvReac Type Severity Reaction Status Date / Time No Known Allergies Allergy Verified 09/04/18 21:11 Review of Systems ROS Statement: Those systems with pertinent positive or pertinent negative responses have been documented in the HPI. ROS Other: All systems not noted in ROS Statement are negative. Past Medical History Additional Past Medical History / Comment(s): deaf, blind, down syndrome, History of Any Multi-Drug Resistant Organisms: None Reported Additional Past Surgical History / Comment(s): hemerrhoids, Past Psychological History: No Psychological Hx Reported Smoking Status: Never smoker Past Alcohol Use History: None Reported Past Drug Use History: None Reported General Exam - General Exam Comments Initial Comments: Physical Exam GENERAL: Syndrome and Parents, appears dehydrated, dry mucous membranes HENT: Low-set ears, deep set eyes TMs normal bilaterally no hemotympanum No epistaxis Dry mucous membranes, poor dentition with multiple dental caries EYES: Cataracts bilaterally EOMI PULMONARY: Unlabored respirations. No audible rales rhonchi or wheezing was noted. CARDIOVASCULAR: There is a regular rate and rhythm without any murmurs gallops or rubs. ABDOMEN: Abdomen is firm to palpation however I am unable to determine if this is due to pain or because the patient is ticklish. He does not wince during exam. SKIN: Abrasion on top of head Well healing bruises on forearms : Deferred NEUROLOGIC: Awake, oriented to self At baseline per caregivers MUSCULOSKELETAL: Normal extremities with adequate strength and full range of motion. No lower extremity swelling or edema. No calf tenderness. PSYCHIATRIC: Profound cognitive delay Limitations: altered mental status, physical limitation Course Vital Signs 09/04/18 09/04/18 21:08 23:24 Temperature 97.6 F 98 F Pulse Rate 76 64 Respiratory 18 18 Rate Blood Pressure 110/66 108/81 O2 Sat by Pulse 98 98 Oximetry Medical Decision Making - Medical Decision Making The patient was seen and evaluated history is obtained from caregivers at bedside 62-year-old minimally verbal gentleman has had diarrhea throughout the day today Labs and imaging were ordered IV fluids were given Labs no significant abnormalities CT imaging suggestive of enteritis Results were discussed with family and caregivers at bedside. I did offer to admit the patient to the hospital for further evaluation IV fluids and management of diarrhea considering that given his somewhat debilitated state this will be very labor intensive however family feels that the patient does much better in his penit[facility]iary and they would like him taken back there. Caregivers at the penitentiary report that the half no problem caring for him. They'll make sure he stays hydrated. Questions pertaining care were answered return parameters were discussed the patient was discharged in the care of his penitentiary. - Lab Data Result diagrams: 09/04/18 21:52 09/04/18 21:52 Lab Results 09/04/18 09/04/18 09/04/18 Range/Units 21:52 21:52 23:07 WBC 9.7 (3.8-10.6) k/uL RBC 4.55 (4.30-5.90) m/uL Hgb 15.1 (13.0-17.5) gm/dL Hct 45.0 (39.0-53.0) % MCV 99.0 (80.0-100.0) fL MCH 33.2 (25.0-35.0) pg MCHC 33.5 (31.0-37.0) g/dL RDW 15.6 H (11.5-15.5) % Plt Count 243 (150-450) k/uL Neutrophils % 77 % Lymphocytes % 14 % Monocytes % 5 % Eosinophils % 1 % Basophils % 1 % Neutrophils # 7.5 (1.3-7.7) k/uL Lymphocytes # 1.4 (1.0-4.8) k/uL Monocytes # 0.5 (0-1.0) k/uL Eosinophils # 0.1 (0-0.7) k/uL Basophils # 0.1 (0-0.2) k/uL Macrocytosis Slight Sodium 141 (137-145) mmol/L Potassium 5.1 (3.5-5.1) mmol/L Chloride 106 (98-107) mmol/L Carbon Dioxide 27 (22-30) mmol/L Anion Gap 8 mmol/L BUN 22 H (9-20) mg/dL Creatinine 0.99 (0.66-1.25) mg/dL Est GFR (CKD-EPI)AfAm >90 (>60 ml/min/1.73 sqM) Est GFR (CKD-EPI)NonAf 82 (>60 ml/min/1.73 sqM) Glucose 121 H (74-99) mg/dL Calcium 8.6 (8.4-10.2) mg/dL Total Bilirubin 0.2 (0.2-1.3) mg/dL AST 31 (17-59) U/L ALT 19 L (21-72) U/L Alkaline Phosphatase 76 (38-126) U/L Total Protein 7.5 (6.3-8.2) g/dL Albumin 3.8 (3.5-5.0) g/dL Lipase 104 (23-300) U/L Urine Color Light Yellow Urine Appearance Clear (Clear) Urine pH 5.5 (5.0-8.0) Ur Specific [place] 1.050 H (1.001-1.035) Urine Protein Negative (Negative) Urine Glucose (UA) Negative (Negative) Urine Ketones Negative (Negative) Urine Blood Negative (Negative) Urine Nitrite Negative (Negative) Urine Bilirubin Negative (Negative) Urine Urobilinogen <2.0 (<2.0) mg/dL Ur Leukocyte Esterase Negative (Negative) Disposition Clinical Impression: Diarrhea, Fall at home Disposition: HOME SELF-CARE Condition: Stable Instructions (If sedation given, give patient instructions): Acute Diarrhea (ED) Is patient prescribed a controlled substance at d/c from ED?: No Referrals: Marko Gonzales MD [Primary Care Provider] - 1-2 days
[2018-09-04 22:00] LABS: Basophils # (A) 0.1 k/uL (0-0.2); Basophils % (A) 1 %; Eosinophils # (A) 0.1 k/uL (0-0.7); Eosinophils % (A) 1 %; HGB 15.1 gm/dL (13.0-17.5); Lymphocytes # (A) 1.4 k/uL (1.0-4.8); Lymphocytes % (A) 14 %; MCH 33.2 pg (25.0-35.0); MCHC 33.5 g/dL (31.0-37.0); Macrocytosis Slight; Mean Platelet Volume 7.6; Monocytes # (A) 0.5 k/uL (0-1.0); Monocytes % (A) 5 %; Neutrophils # (A) 7.5 k/uL (1.3-7.7); Neutrophils % (A) 77 %; Platelet Count 243 k/uL (150-450); RBC 4.55 m/uL (4.30-5.90); RDW 15.6 % (11.5-15.5); WBC 9.7 k/uL (3.8-10.6)
[2018-09-04 22:09] LABS: ALT 19 U/L (21-72); AST 31 U/L (17-59); African American GFR (CKD) >90 (>60 ml/min/1.73 sqM); Albumin 3.8 g/dL (3.5-5.0); Alkaline Phosphatase 76 U/L (38-126); Anion Gap 8 mmol/L; Blood Urea Nitrogen 22 mg/dL (9-20); Calcium 8.6 mg/dL (8.4-10.2); Carbon Dioxide 27 mmol/L (22-30); Chloride 106 mmol/L (98-107); Glucose 121 mg/dL (74-99); Lipase 104 U/L (23-300); Potassium 5.1 mmol/L (3.5-5.1); Sodium 141 mmol/L (137-145); Total Bilirubin 0.2 mg/dL (0.2-1.3); Total Protein 7.5 g/dL (6.3-8.2)
--- NOTE | 2018-09-04 22:43 | CT ---
EXAM: CT Abdomen and Pelvis With Intravenous Contrast CLINICAL HISTORY: ITS.REASON CT Reason: Pain, diarrhea - nonverbal TECHNIQUE: Axial computed tomography images of the abdomen and pelvis with intravenous contrast. CTDI is 14.7 mGy and DLP is 673 mGy-cm. This CT exam was performed using one or more of the following dose reduction techniques: automated exposure control, adjustment of the mA and/or kV according to patient size, and/or use of iterative reconstruction technique. COMPARISON: No relevant prior studies available. FINDINGS: Lung bases: Calcified granuloma in the right lower lobe. ABDOMEN: Liver: Unremarkable. No mass. Gallbladder and bile ducts: Unremarkable. No calcified stones. No ductal dilation. Pancreas: Unremarkable. No mass. No ductal dilation. Spleen: Unremarkable. No splenomegaly. Adrenals: Unremarkable. No mass. Kidneys and ureters: Right renal cysts, largest measuring 2.7 cm. No hydronephrosis. Stomach and bowel: Mildly thickened proximal loops of small bowel may be related to under distention versus enteritis. PELVIS: Appendix: No findings to suggest acute appendicitis. Bladder: Circumferential urinary bladder wall thickening may suggest cystitis versus infiltrative process. Reproductive: Unremarkable as visualized. ABDOMEN and PELVIS: Intraperitoneal space: Unremarkable. No free air. No significant fluid collection. Bones/joints: No acute fracture. No dislocation. Soft tissues: Unremarkable. Vasculature: Unremarkable. No abdominal aortic aneurysm. Lymph nodes: Unremarkable. No enlarged lymph nodes. IMPRESSION: Wall thickening involving proximal loops of small bowel may be related to under distention versus enteritis. Circumferential urinary bladder wall thickening may suggest cystitis versus infiltrative process.
[2018-09-04 23:14] LABS: Appearance,Urine Clear (Clear); Bilirubin,Urine Negative (Negative); Blood,Urine Negative (Negative); Color,Urine Light Yellow; Glucose,Urine (UA) Negative (Negative); Ketones,Urine Negative (Negative); Leukocyte Esterase,Urine Negative (Negative); Nitrite,Urine Negative (Negative); PH, Urine 5.5 (5.0-8.0); Protein,Urine Negative (Negative); Urobilinogen,Urine <2.0 mg/dL (<2.0)
[2018-09-04 23:26] VITALS: BP 108/81; PULSE 64; TEMP 98
== END 2018-09-04 23:53 | disposition home or self-care (01) ==
LOC: EC 20:59 → EEVIPCON 20:59 → EC 23:53
DX: R19.7 Diarrhea, unspecified (principal); S00.01XA Abrasion of scalp, initial encounter; S50.12XA Contusion of left forearm, initial encounter; S50.11XA Contusion of right forearm, initial encounter; K02.9 Dental caries, unspecified; H91.90 Unspecified hearing loss, unspecified ear; Q90.9 Down syndrome, unspecified; Z79.890 Hormone replacement therapy; Z79.899 Other long term (current) drug therapy; W06.XXXA Fall from bed, initial encounter; Y92.002 Bathroom of unspecified non-institutional (private) residence as the place of occurrence of the external cause
CPT/HCPCS: 36415; 80053; 83690; 85025; 81003; 74177; 99284; 96360; Q9967

== ENCOUNTER 2019-04-28 19:48 | Emergency (ER) | payer MEDICARE, OTHER ==
[2019-04-28] MEDS ORDERED: SODIUM CHLORIDE 0.9% 500 ML 500 ML IV ONE (19:54)
[2019-04-28] MEDS ORDERED: SODIUM CHLORIDE 0.9% 1,000 ML IV ONE (19:54)
--- NOTE | 2019-04-28 20:04 | ED ---
General Adult HPI - General Chief complaint: Abdominal Pain Stated complaint: Abd Pain Time Seen by Provider: 04/28/19 19:48 Source: EMS, RN notes reviewed, old records reviewed Mode of arrival: EMS Limitations: altered mental status - History of Present Illness Initial comments: This is a 63-year-old male history of Down syndrome who is also deaf and blind who was found unresponsive lying on the floor in his room prior to arrival. Is unknown how long he was on the floor. No signs of injury patient did not respond to sternal rub as well as IV was established. He'll wake up. He is found to be bradycardic initially with his heart rate in the 40s. He later complained of abdominal pain and now complains left knee pain and no abdominal pain. He is very poor historian due to his current condition. No reports of fevers chills nausea vomiting sweats or other symptoms he was incontinent of stool per paramedics - Related Data Home Medications Medication Instructions Recorded Confirmed Docusate [Colace] 200 mg PO HS 02/27/17 05/15/18 Inulin/Chromium Picolinate [Fiber 1 tab PO DAILY 02/27/17 05/15/18 Gummies Chew] Levothyroxine Sodium [Synthroid] 112 mcg PO DAILY 02/27/17 05/15/18 Multivitamins, Thera [Multivitamin 1 tab PO DAILY 02/27/17 05/15/18 (formulary)] Omeprazole 20 mg PO BID 02/27/17 05/15/18 Divalproex [Depakote] 250 mg PO BID 05/15/18 05/15/18 QUEtiapine [SEROquel] 50 mg PO HS 05/15/18 05/15/18 Allergies Allergy/AdvReac Type Severity Reaction Status Date / Time No Known Allergies Allergy Verified 09/04/18 21:11 Review of Systems ROS Statement: Those systems with pertinent positive or pertinent negative responses have been documented in the HPI. ROS Other: All systems not noted in ROS Statement are negative. Past Medical History Additional Past Medical History / Comment(s): deaf, blind, down syndrome, History of Any Multi-Drug Resistant Organisms: None Reported Additional Past Surgical History / Comment(s): hemerrhoids, Past Psychological History: No Psychological Hx Reported Smoking Status: Never smoker Past Alcohol Use History: None Reported Past Drug Use History: None Reported General Exam - General Exam Comments Initial Comments: This is a well-developed sec appearing male who is awake and apparently alert Limitations: altered mental status General appearance: alert, anxious Head exam: Present: atraumatic Eye exam: Present: other (Bilateral cataracts) ENT exam: Present: mucous membranes dry Neck exam: Present: normal inspection, full ROM, other (No stridor JVD or bruits) Cardiovascular Exam: Present: irregular rhythm GI/Abdominal exam: Present: soft, normal bowel sounds. Absent: distended, bruit, pulsatile mass Extremities exam: Present: tenderness (Some tenderness palpation of left knee no step-off no crepitation), normal capillary refill Skin exam: Present: dry, intact, pallor Course Vital Signs 04/28/19 04/28/19 04/28/19 19:50 20:17 20:47 Temperature 95.4 F L Pulse Rate 73 69 Respiratory 20 18 Rate Blood Pressure 114/64 91/65 O2 Sat by Pulse 95 94 L Oximetry - Reevaluation(s) Reevaluation #1: 04/28/19 20:15 I did discuss the case with the patient's power of family law attorney he has had episodes like this in the past at the request no Han catheter will be used the imaging will not be performed. Agreement was made on labs and IV fluids. Patient apparently has had issues before with bradycardia. EKG Findings - EKG Results: EKG: interpreted by BEKAH, sinus rhythm (Sinus rhythm a 69. Interval 144 QRS 90 QT since QTC 42/4:[address] configuration) Medical Decision Making - Medical Decision Making I did reevaluate the patient multiple occasions he is improved he is back to normal apparently though he does look a little bit pale per the caregiver hemoglobin level is within normal limits he did have clinical evidence of dehydration. The current presentation is likely secondary to a vasovagal episode. I did discuss this extensively with the patient's power of family law attorney prior to the initial evaluation - Lab Data Result diagrams: 04/28/19 20:16 04/28/19 20:16 Lab Results 04/28/19 04/28/19 04/28/19 Range/Units 20:16 20:16 20:16 WBC 7.2 (3.8-10.6) k/uL RBC 4.23 L (4.30-5.90) m/uL Hgb 14.1 (13.0-17.5) gm/dL Hct 43.5 (39.0-53.0) % MCV 102.8 H (80.0-100.0) fL MCH 33.4 (25.0-35.0) pg MCHC 32.5 (31.0-37.0) g/dL RDW 14.3 (11.5-15.5) % Plt Count 174 (150-450) k/uL Neutrophils % 60 % Lymphocytes % 29 % Monocytes % 6 % Eosinophils % 2 % Basophils % 1 % Neutrophils # 4.3 (1.3-7.7) k/uL Lymphocytes # 2.1 (1.0-4.8) k/uL Monocytes # 0.5 (0-1.0) k/uL Eosinophils # 0.1 (0-0.7) k/uL Basophils # 0.1 (0-0.2) k/uL Macrocytosis Slight Sodium 139 (137-145) mmol/L Potassium 4.1 (3.5-5.1) mmol/L Chloride 110 H (98-107) mmol/L Carbon Dioxide 23 (22-30) mmol/L Anion Gap 6 mmol/L BUN 15 (9-20) mg/dL Creatinine 0.82 (0.66-1.25) mg/dL Est GFR (CKD-EPI)AfAm >90 (>60 ml/min/1.73 sqM) Est GFR (CKD-EPI)NonAf >90 (>60 ml/min/1.73 sqM) Glucose 104 H (74-99) mg/dL POC Glucose (mg/dL) (75-99) mg/dL POC Glu Bowl Sander ID Calcium 8.2 L (8.4-10.2) mg/dL Magnesium 1.9 (1.6-2.3) mg/dL Total Bilirubin 0.2 (0.2-1.3) mg/dL AST 29 (17-59) U/L ALT 13 (4-49) U/L Alkaline Phosphatase 58 (38-126) U/L Creatine Kinase 42 L (55-170) U/L Troponin I <0.012 (0.000-0.034) ng/mL Total Protein 6.7 (6.3-8.2) g/dL Albumin 3.1 L (3.5-5.0) g/dL 04/28/19 Range/Units 20:17 WBC (3.8-10.6) k/uL RBC (4.30-5.90) m/uL Hgb (13.0-17.5) gm/dL Hct (39.0-53.0) % MCV (80.0-100.0) fL MCH (25.0-35.0) pg MCHC (31.0-37.0) g/dL RDW (11.5-15.5) % Plt Count (150-450) k/uL Neutrophils % % Lymphocytes % % Monocytes % % Eosinophils % % Basophils % % Neutrophils # (1.3-7.7) k/uL Lymphocytes # (1.0-4.8) k/uL Monocytes # (0-1.0) k/uL Eosinophils # (0-0.7) k/uL Basophils # (0-0.2) k/uL Macrocytosis Sodium (137-145) mmol/L Potassium (3.5-5.1) mmol/L Chloride (98-107) mmol/L Carbon Dioxide (22-30) mmol/L Anion Gap mmol/L BUN (9-20) mg/dL Creatinine (0.66-1.25) mg/dL Est GFR (CKD-EPI)AfAm (>60 ml/min/1.73 sqM) Est GFR (CKD-EPI)NonAf (>60 ml/min/1.73 sqM) Glucose (74-99) mg/dL POC Glucose (mg/dL) 107 H (75-99) mg/dL POC Glu Bowl Sander ID Javid Ceron Calcium (8.4-10.2) mg/dL Magnesium (1.6-2.3) mg/dL Total Bilirubin (0.2-1.3) mg/dL AST (17-59) U/L ALT (4-49) U/L Alkaline Phosphatase (38-126) U/L Creatine Kinase (55-170) U/L Troponin I (0.000-0.034) ng/mL Total Protein (6.3-8.2) g/dL Albumin (3.5-5.0) g/dL Disposition Clinical Impression: Vasovagal syncope, Dehydration, Down syndrome, unspecified Disposition: HOME SELF-CARE Condition: Good Instructions (If sedation given, give patient instructions): Syncope (ED), D ehydration (ED) Is patient prescribed a controlled substance at d/c from ED?: No Referrals: Marko Gonzales MD [Primary Care Provider] - 1-2 days
[2019-04-28 20:17] VITALS: TEMP 95.4
[2019-04-28 20:19] LABS: Glucose,Whole Blood 107 mg/dL (75-99)
[2019-04-28 20:31] LABS: Basophils # (A) 0.1 k/uL (0-0.2); Basophils % (A) 1 %; Eosinophils # (A) 0.1 k/uL (0-0.7); Eosinophils % (A) 2 %; HCT 43.5 % (39.0-53.0); HGB 14.1 gm/dL (13.0-17.5); Lymphocytes # (A) 2.1 k/uL (1.0-4.8); Lymphocytes % (A) 29 %; MCH 33.4 pg (25.0-35.0); MCHC 32.5 g/dL (31.0-37.0); MCV 102.8 fL (80.0-100.0); Macrocytosis Slight; Mean Platelet Volume 7.9; Monocytes # (A) 0.5 k/uL (0-1.0); Monocytes % (A) 6 %; Neutrophils # (A) 4.3 k/uL (1.3-7.7); Neutrophils % (A) 60 %; Platelet Count 174 k/uL (150-450); RBC 4.23 m/uL (4.30-5.90); RDW 14.3 % (11.5-15.5); WBC 7.2 k/uL (3.8-10.6)
[2019-04-28 20:48] VITALS: BP 91/65; PULSE 69; RESP 18
[2019-04-28 20:53] LABS: ALT 13 U/L (4-49); AST 29 U/L (17-59); African American GFR (CKD) >90 (>60 ml/min/1.73 sqM); Albumin 3.1 g/dL (3.5-5.0); Alkaline Phosphatase 58 U/L (38-126); Anion Gap 6 mmol/L; Blood Urea Nitrogen 15 mg/dL (9-20); Calcium 8.2 mg/dL (8.4-10.2); Carbon Dioxide 23 mmol/L (22-30); Chloride 110 mmol/L (98-107); Creatine Kinase 42 U/L (55-170); Glucose 104 mg/dL (74-99); Magnesium 1.9 mg/dL (1.6-2.3); Non-African American GFR(CKD) >90 (>60 ml/min/1.73 sqM); Potassium 4.1 mmol/L (3.5-5.1); Sodium 139 mmol/L (137-145); Total Bilirubin 0.2 mg/dL (0.2-1.3); Total Protein 6.7 g/dL (6.3-8.2)
== END 2019-04-28 22:23 | disposition home or self-care (01) ==
LOC: EC 19:48
DX: E86.0 Dehydration (principal); Q90.9 Down syndrome, unspecified; R55 Syncope and collapse; R00.1 Bradycardia, unspecified; R10.9 Unspecified abdominal pain; M25.562 Pain in left knee; H91.90 Unspecified hearing loss, unspecified ear; H54.7 Unspecified visual loss; Z79.890 Hormone replacement therapy; Z79.899 Other long term (current) drug therapy
CPT/HCPCS: 36415; 80053; 82550; 83735; 84484; 85025; 93005; 96374; 99285

== ENCOUNTER 2019-08-20 13:06 | Emergency (ER) | payer MEDICARE, OTHER ==
[2019-08-20] MEDS ORDERED: SODIUM CHLORIDE 0.9% 1,000 ML IV STA (13:14)
[2019-08-20 13:23] VITALS: RESP 18
[2019-08-20 13:23] LABS: Glucose,Whole Blood 98 mg/dL (75-99)
--- NOTE | 2019-08-20 13:43 | XR ---
EXAMINATION TYPE: XR chest 2V DATE OF EXAM: 08/20/2019 HISTORY: dysrhythmia. REFERENCE: Previous study dated 05/15/2018. FINDINGS: The lungs remain clear. Pleural spaces are clear. The heart is not enlarged IMPRESSION: NO ACTIVE INTRATHORACIC DISEASE.
[2019-08-20 13:44] LABS: Basophils # (A) 0.1 k/uL (0-0.2); Basophils % (A) 1 %; Eosinophils # (A) 0.1 k/uL (0-0.7); Eosinophils % (A) 2 %; HCT 43.7 % (39.0-53.0); Lymphocytes % (A) 37 %; MCH 33.1 pg (25.0-35.0); MCHC 32.1 g/dL (31.0-37.0); MCV 103.3 fL (80.0-100.0); Macrocytosis Slight; Mean Platelet Volume 7.3; Monocytes # (A) 0.4 k/uL (0-1.0); Monocytes % (A) 6 %; Neutrophils # (A) 2.9 k/uL (1.3-7.7); Neutrophils % (A) 52 %; Platelet Count 236 k/uL (150-450); RBC 4.22 m/uL (4.30-5.90); RDW 14.2 % (11.5-15.5); WBC 5.5 k/uL (3.8-10.6)
[2019-08-20 13:54] LABS: INR 1.1 (<1.2); Partial Thromboplastin Time 24.2 sec (22.0-30.0); Prothrombin Time 11.1 sec (9.0-12.0)
[2019-08-20 13:56] LABS: ALT 13 U/L (4-49); AST 21 U/L (17-59); African American GFR (CKD) >90 (>60 ml/min/1.73 sqM); Albumin 3.2 g/dL (3.5-5.0); Alkaline Phosphatase 54 U/L (38-126); Anion Gap 8 mmol/L; Blood Urea Nitrogen 13 mg/dL (9-20); Calcium 8.5 mg/dL (8.4-10.2); Carbon Dioxide 25 mmol/L (22-30); Chloride 106 mmol/L (98-107); Creatine Kinase 22 U/L (55-170); Glucose 103 mg/dL (74-99); Magnesium 1.8 mg/dL (1.6-2.3); Non-African American GFR(CKD) >90 (>60 ml/min/1.73 sqM); Potassium 3.9 mmol/L (3.5-5.1); Sodium 139 mmol/L (137-145); Total Bilirubin 0.2 mg/dL (0.2-1.3); Total Protein 6.7 g/dL (6.3-8.2)
--- NOTE | 2019-08-20 14:08 | ED ---
General Adult HPI - General Chief complaint: Syncope Stated complaint: syncope, hypotension Time Seen by Provider: 08/20/19 13:06 Source: EMS, RN notes reviewed, old records reviewed Mode of arrival: EMS Limitations: physical limitation - History of Present Illness Initial comments: This is a 63-year-old male with a history of Down syndrome and blindness who currently was sitting in a car after eating lunch when he passed out for about 2 minutes she was told and responsive apparently no reports of seizure-like activity however. EMS was called patient seemed to wake up after brief period time he did point to his chest which indicated he has some pain normally nonverbal. Reports of any trauma no fevers chills nausea vomiting sweats or other symptoms reported at this time - Related Data Home Medications Medication Instructions Recorded Confirmed Docusate [Colace] 200 mg PO HS 02/27/17 05/15/18 Inulin/Chromium Picolinate [Fiber 1 tab PO DAILY 02/27/17 05/15/18 Gummies Chew] Levothyroxine Sodium [Synthroid] 112 mcg PO DAILY 02/27/17 05/15/18 Multivitamins, Thera [Multivitamin 1 tab PO DAILY 02/27/17 05/15/18 (formulary)] Omeprazole 20 mg PO BID 02/27/17 05/15/18 Divalproex [Depakote] 250 mg PO BID 05/15/18 05/15/18 QUEtiapine [SEROquel] 50 mg PO HS 05/15/18 05/15/18 Allergies Allergy/AdvReac Type Severity Reaction Status Date / Time No Known Allergies Allergy Verified 08/20/19 13:13 Review of Systems ROS Statement: Those systems with pertinent positive or pertinent negative responses have been documented in the HPI. ROS Other: All systems not noted in ROS Statement are negative. Past Medical History Additional Past Medical History / Comment(s): UTE, blind, down syndrome, History of Any Multi-Drug Resistant Organisms: None Reported Additional Past Surgical History / Comment(s): hemerrhoids, Past Psychological History: No Psychological Hx Reported Smoking Status: Never smoker Past Alcohol Use History: None Reported Past Drug Use History: None Reported General Exam - General Exam Comments Initial Comments: Is a well-developed asthenic appearing male who appears be awake and alert though is on verbal. He does have the stigmata of Down's syndrome Limitations: physical limitation General appearance: alert, in no apparent distress Head exam: Present: atraumatic, normocephalic, normal inspection Eye exam: Present: normal appearance, PERRL, EOMI. Absent: scleral icterus, conjunctival injection, periorbital swelling ENT exam: Present: mucous membranes dry Neck exam: Present: normal inspection, full ROM, other (No stridor JVD or bruits). Absent: tenderness, meningismus, lymphadenopathy Respiratory exam: Present: normal lung sounds bilaterally. Absent: respiratory distress, wheezes, rales, rhonchi, stridor Cardiovascular Exam: Present: regular rate, normal rhythm, normal heart sounds. Absent: systolic murmur, diastolic murmur, rubs, gallop, clicks GI/Abdominal exam: Present: soft, normal bowel sounds. Absent: distended, tenderness, guarding, rebound, rigid Extremities exam: Present: normal inspection, full ROM, normal capillary refill. Absent: tenderness, pedal edema, joint swelling, calf tenderness Back exam: Present: other (Some evidence of kyphosis) Neurological exam: Present: alert, CN II-XII intact Psychiatric exam: Present: normal affect, normal mood Skin exam: Present: warm, dry, intact, normal color. Absent: rash Course Vital Signs 08/20/19 08/20/19 13:13 13:23 Temperature 97.3 F L Pulse Rate 66 66 Respiratory 18 18 Rate Blood Pressure 105/71 111/73 O2 Sat by Pulse 100 99 Oximetry EKG Findings - EKG Results: EKG: interpreted by ERMD, WNL, sinus rhythm, normal axis, normal QRS, normal ST/T, no acute changes (Normal sinus rhythm of 62. Interval 142 QRS duration 90 QT since QTC 390/[address]-T wave changes) Medical Decision Making - Medical Decision Making Patient is resting comfortably and remains that way since arrival. Initially the patient was went to be admitted for evaluation of syncope however after discussion with the caregiver who is very cognizant of the patient medical conditions she would prefer to take him home this is a was identical to previous episode in April of this year. Return parameters were given I did notify Dr. Mott. He had come originally to see the patient in the emergency depart ment. - Lab Data Result diagrams: 08/20/19 13:20 08/20/19 13:20 Lab Results 08/20/19 08/20/19 08/20/19 Range/Units 13:19 13:20 13:20 WBC 5.5 (3.8-10.6) k/uL RBC 4.22 L (4.30-5.90) m/uL Hgb 14.0 (13.0-17.5) gm/dL Hct 43.7 (39.0-53.0) % MCV 103.3 H (80.0-100.0) fL MCH 33.1 (25.0-35.0) pg MCHC 32.1 (31.0-37.0) g/dL RDW 14.2 (11.5-15.5) % Plt Count 236 (150-450) k/uL Neutrophils % 52 % Lymphocytes % 37 % Monocytes % 6 % Eosinophils % 2 % Basophils % 1 % Neutrophils # 2.9 (1.3-7.7) k/uL Lymphocytes # 2.0 (1.0-4.8) k/uL Monocytes # 0.4 (0-1.0) k/uL Eosinophils # 0.1 (0-0.7) k/uL Basophils # 0.1 (0-0.2) k/uL Macrocytosis Slight PT 11.1 (9.0-12.0) sec INR 1.1 (<1.2) APTT 24.2 (22.0-30.0) sec Sodium (137-145) mmol/L Potassium (3.5-5.1) mmol/L Chloride (98-107) mmol/L Carbon Dioxide (22-30) mmol/L Anion Gap mmol/L BUN (9-20) mg/dL Creatinine (0.66-1.25) mg/dL Est GFR (CKD-EPI)AfAm (>60 ml/min/1.73 sqM) Est GFR (CKD-EPI)NonAf (>60 ml/min/1.73 sqM) Glucose (74-99) mg/dL POC Glucose (mg/dL) 98 (75-99) mg/dL POC Glu Public Relations Supervisor ID Elizabet Jauregui Calcium (8.4-10.2) mg/dL Magnesium (1.6-2.3) mg/dL Total Bilirubin (0.2-1.3) mg/dL AST (17-59) U/L ALT (4-49) U/L Alkaline Phosphatase (38-126) U/L Creatine Kinase (55-170) U/L Troponin I (0.000-0.034) ng/mL Total Protein (6.3-8.2) g/dL Albumin (3.5-5.0) g/dL Urine Color Urine Appearance (Clear) Urine pH (5.0-8.0) Ur Specific Fairborn (1.001-1.035) Urine Protein (Negative) Urine Glucose (UA) (Negative) Urine Ketones (Negative) Urine Blood (Negative) Urine Nitrite (Negative) Urine Bilirubin (Negative) Urine Urobilinogen (<2.0) mg/dL Ur Leukocyte Esterase (Negative) Urine RBC (0-5) /hpf Urine WBC (0-5) /hpf Ur Squamous Epith Cells (0-4) /hpf Urine Bacteria (None) /hpf Hyaline Casts (0-2) /lpf Urine Mucus (None) /hpf 08/20/19 08/20/19 08/20/19 Range/Units 13:20 13:20 14:00 WBC (3.8-10.6) k/uL RBC (4.30-5.90) m/uL Hgb (13.0-17.5) gm/dL Hct (39.0-53.0) % MCV (80.0-100.0) fL MCH (25.0-35.0) pg MCHC (31.0-37.0) g/dL RDW (11.5-15.5) % Plt Count (150-450) k/uL Neutrophils % % Lymphocytes % % Monocytes % % Eosinophils % % Basophils % % Neutrophils # (1.3-7.7) k/uL Lymphocytes # (1.0-4.8) k/uL Monocytes # (0-1.0) k/uL Eosinophils # (0-0.7) k/uL Basophils # (0-0.2) k/uL Macrocytosis PT (9.0-12.0) sec INR (<1.2) APTT (22.0-30.0) sec Sodium 139 (137-145) mmol/L Potassium 3.9 (3.5-5.1) mmol/L Chloride 106 (98-107) mmol/L Carbon Dioxide 25 (22-30) mmol/L Anion Gap 8 mmol/L BUN 13 (9-20) mg/dL Creatinine 0.84 (0.66-1.25) mg/dL Est GFR (CKD-EPI)AfAm >90 (>60 ml/min/1.73 sqM) Est GFR (CKD-EPI)NonAf >90 (>60 ml/min/1.73 sqM) Glucose 103 H (74-99) mg/dL POC Glucose (mg/dL) (75-99) mg/dL POC Glu Public Relations Supervisor ID Calcium 8.5 (8.4-10.2) mg/dL Magnesium 1.8 (1.6-2.3) mg/dL Total Bilirubin 0.2 (0.2-1.3) mg/dL AST 21 (17-59) U/L ALT 13 (4-49) U/L Alkaline Phosphatase 54 (38-126) U/L Creatine Kinase 22 L (55-170) U/L Troponin I <0.012 (0.000-0.034) ng/mL Total Protein 6.7 (6.3-8.2) g/dL Albumin 3.2 L (3.5-5.0) g/dL Urine Color Yenny Urine Appearance Clear (Clear) Urine pH 6.0 (5.0-8.0) Ur Specific Fairborn 1.020 (1.001-1.035) Urine Protein 1+ H (Negative) Urine Glucose (UA) Negative (Negative) Urine Ketones Negative (Negative) Urine Blood Negative (Negative) Urine Nitrite Negative (Negative) Urine Bilirubin Negative (Negative) Urine Urobilinogen 2.0 (<2.0) mg/dL Ur Leukocyte Esterase Small (Negative) Urine RBC 2 (0-5) /hpf Urine WBC 12 H (0-5) /hpf Ur Squamous Epith Cells 1 (0-4) /hpf Urine Bacteria Rare H (None) /hpf Hyaline Casts 19 H (0-2) /lpf Urine Mucus Many H (None) /hpf - Radiology Data Radiology results: report reviewed (I did review the imaging and report no acute findings.), image reviewed Disposition Clinical Impression: Syncope, Down syndrome Disposition: HOME SELF-CARE Condition: Good Instructions (If sedation given, give patient instructions): Syncope (ED) Is patient prescribed a controlled substance at d/c from ED?: No Referrals: Marko Gonzales MD [Primary Care Provider] - 1-2 days
[2019-08-20 14:15] LABS: Bacteria,Urine Rare /hpf; Hyaline Casts,Urine 19 /lpf (0-2); Mucus,Urine Many /hpf; RBC,Urine 2 /hpf (0-5); Squamous Epithelial Cell,Urine 1 /hpf (0-4); WBC,Urine 12 /hpf (0-5)
[2019-08-20 14:17] LABS: Appearance,Urine Clear (Clear); Color,Urine Amber; Glucose,Urine (UA) Negative (Negative); Protein,Urine 1+ (Negative)
[2019-08-20 14:18] LABS: Bilirubin,Urine Negative (Negative); Blood,Urine Negative (Negative); Ketones,Urine Negative (Negative); Leukocyte Esterase,Urine Small (Negative); Nitrite,Urine Negative (Negative)
[2019-08-20 15:24] VITALS: BP 128/88; PULSE 77; TEMP 98.6
== END 2019-08-20 15:24 | disposition home or self-care (01) ==
LOC: EC 13:06
DX: R55 Syncope and collapse (principal); Q90.9 Down syndrome, unspecified; H54.8 Legal blindness, as defined in USA
CPT/HCPCS: 36415; 71046; 80053; 81001; 82550; 83735; 84484; 85025; 85610; 85730; 87086; 93005; 96360; 96361; 99285

== ENCOUNTER → 2019-10-02 | Outpatient (CLI) | payer MEDICARE, OTHER ==
[2019-10-02 11:50] LABS: Basophils # (A) 0.1 k/uL (0-0.2); Basophils % (A) 1 %; Eosinophils # (A) 0.1 k/uL (0-0.7); Eosinophils % (A) 2 %; HGB 15.1 gm/dL (13.0-17.5); Lymphocytes # (A) 1.9 k/uL (1.0-4.8); Lymphocytes % (A) 31 %; MCH 33.3 pg (25.0-35.0); MCHC 31.4 g/dL (31.0-37.0); MCV 105.9 fL (80.0-100.0); Macrocytosis Moderate; Mean Platelet Volume 7.4; Monocytes # (A) 0.4 k/uL (0-1.0); Monocytes % (A) 6 %; Neutrophils # (A) 3.6 k/uL (1.3-7.7); Neutrophils % (A) 57 %; Platelet Count 247 k/uL (150-450); RBC 4.53 m/uL (4.30-5.90); WBC 6.2 k/uL (3.8-10.6)
[2019-10-02 17:48] LABS: African American GFR (CKD) 106.5 (60.0-200.0); Albumin 3.6 g/dL (3.80-4.90); Albumin/Globulin Ratio 1.03 (1.60-3.17); Anion Gap 1.4 mmol/L (4.00-12.00); BUN/Creat Ratio 17.78 Ratio (12.00-20.00); Calcium 8.8 mg/dL (8.7-10.3); Carbon Dioxide 31.6 mmol/L (21.6-31.8); Chol/HDL Ratio 4.7; Globulin 3.5 g/dL (1.6-3.3); LDL Cholesterol,Calculated 132.4 mg/dL (0.0-131.0); Non-African American GFR(CKD) 91.9 (60.0-200.0); Total Bilirubin 0.3 mg/dL (0.3-1.2); Total Protein 7.1 g/dL (6.2-8.2); VLDL Calculation 15.6 mg/dL (5.00-40.00)
[2019-10-02 17:57] LABS: T4, Free (Free Thyroxine) 1.1 ng/dL (0.80-1.80)
[2019-10-02 18:11] LABS: Valproic Acid (Depakene) 28.2 ug/mL (50.0-100.0)
== END | disposition home or self-care (01) ==
LOC: LABWHC1 08:30
PROVIDERS: ATTEND Psychiatry & Neurology Psychiatry
DX: F02.81 Dementia in other diseases classified elsewhere, unspecified severity, with behavioral disturbance (principal); Z79.899 Other long term (current) drug therapy
CPT/HCPCS: 36415; 80053; 80061; 80164; 84439; 84443; 85025

== ENCOUNTER 2020-09-22 10:05 | Inpatient (IN) | payer MEDICARE, OTHER ==
[2020-09-22] MEDS ORDERED: SODIUM CHLORIDE 0.9% 1,000 ML IV STA (10:39)
[2020-09-22 10:57] LABS: Basophils % (A) 0 %; Eosinophils # (A) 0.1 k/uL (0-0.7); Eosinophils % (A) 0 %; HCT 37.5 % (39.0-53.0); HGB 12.1 gm/dL (13.0-17.5); Lymphocytes # (A) 1.7 k/uL (1.0-4.8); Lymphocytes % (A) 7 %; MCH 32.6 pg (25.0-35.0); MCHC 32.3 g/dL (31.0-37.0); MCV 101.1 fL (80.0-100.0); Macrocytosis Slight; Mean Platelet Volume 7.7; Monocytes # (A) 0.6 k/uL (0-1.0); Monocytes % (A) 3 %; Neutrophils # (A) 20.8 k/uL (1.3-7.7); Neutrophils % (A) 89 %; Platelet Count 567 k/uL (150-450); RBC 3.71 m/uL (4.30-5.90); RDW 13.7 % (11.5-15.5); WBC 23.4 k/uL (3.8-10.6)
[2020-09-22 11:06] LABS: INR 1.1 (<1.2); Partial Thromboplastin Time 25.7 sec (22.0-30.0)
[2020-09-22 11:07] LABS: ALT 19 U/L (4-49); AST 39 U/L (17-59); African American GFR (CKD) >90 (>60 ml/min/1.73 sqM); Albumin 2.8 g/dL (3.5-5.0); Alkaline Phosphatase 142 U/L (38-126); Anion Gap 10 mmol/L; Blood Urea Nitrogen 23 mg/dL (9-20); Carbon Dioxide 28 mmol/L (22-30); Chloride 98 mmol/L (98-107); Glucose 94 mg/dL (74-99); Magnesium 2.2 mg/dL (1.6-2.3); Non-African American GFR(CKD) >90 (>60 ml/min/1.73 sqM); Potassium 4.9 mmol/L (3.5-5.1); Sodium 136 mmol/L (137-145); Total Bilirubin 0.4 mg/dL (0.2-1.3); Total Protein 7.2 g/dL (6.3-8.2)
--- NOTE | 2020-09-22 12:09 | XR ---
EXAMINATION TYPE: XR chest 2V DATE OF EXAM: 09/22/2020 COMPARISON: 08/19/2020 HISTORY: 64 years Male. STUDY INDICATION GIVEN: Weakness TECHNIQUE: Frontal and lateral chest radiographs FINDINGS AND IMPRESSION: Very large opacity projects over the left hemidiaphragm on the frontal view but is not seen on the la teral view. The lower aspect of the left hemithorax is not well visualized. This finding could repres ent a left lower lobe mass or large pleural effusion further evaluation is recommended. Atelectatic changes are seen in the right lung base without focal airspace disease. There is a tubular-like lucency over the neck which could reflect esophageal dilatation or air within the trachea. Cardiomediastinal silhouette appears normal in size. No acute osseous abnormalities seen. Generalized osteopenia changes noted. Enhanced CT of the thorax recommended, if renal function does not allow for IV contrast is obtained n oncontrast study.
[2020-09-22] MEDS ORDERED: RX INFO: IV CONTRAST WAS GIVEN 1 EACH MISC MISCELLANE PRN (12:13)
[2020-09-22] MEDS ORDERED: PIPERACILLIN-TAZOBACTAM 3.375 GM in SODIUM CHLORIDE 0.9% 100 ML IVPB STA (12:28)
--- NOTE | 2020-09-22 12:28 | ED ---
General Adult HPI - General Chief complaint: Weakness Stated complaint: altered mental status, weakness Time Seen by Provider: 09/22/20 10:33 Source: family, EMS, RN notes reviewed Mode of arrival: EMS Limitations: language barrier, altered mental status - History of Present Illness Initial comments: A she is a 64-year-old male that presents to emergency department with generalized weakness. 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 She states that over the last 2 weeks he has become more lethargic eating and drinking less. She notes that he used to be ambulatory but over the last 2 weeks they've been having to use a wheelchair to get him from place to place. She states that facility he is at [facility] tried to get a urine but was unable and she would like to hold off on catheterization to obtain a sample. She noted that he has not been his baseline for weeks and that he did have a dry cough for a few days at the beginning. She denied any other issues at this time. Unable to obtain review of systems due to patient's nonverbal status. - Related Data Home Medications Medication Instructions Recorded Confirmed Docusate [Colace] 200 mg PO HS@1900 02/27/17 09/22/20 Multivitamins, Thera [Multivitamin 1 tab PO DAILY@0600 02/27/17 09/22/20 (formulary)] Divalproex [Depakote] 250 mg PO BID@0600,1900 05/15/18 09/22/20 QUEtiapine [SEROquel] 50 mg PO HS@1900 05/15/18 09/22/20 ALPRAZolam [Xanax] 1 mg PO BID@0600,19009/22/20 09/22/20 ALPRAZolam [Xanax] 1 mg PO DAILY PRN 09/22/20 09/22/20 Citrucel 500mg 500 mg PO DAILY@59909/22/20 09/22/20 LORazepam [Ativan] 1 mg PO BID PRN 09/22/20 09/22/20 Levothyroxine Sodium 88 mcg PO DAILY@0609/22/20 09/22/20 Meloxicam [Mobic] 7.5 mg PO DAILY@59909/22/20 09/22/20 Nystatin 100,000Unit/gm Cream 1 applic TOPICAL BID@0600,1900 09/22/20 09/22/20 [Mycostatin Cream] Omeprazole 40 mg PO DAILY@0600 09/22/20 09/22/20 Tinactin [place] Powder 1 applic TOPICAL DAILY PRN 09/22/20 09/22/20 Allergies Allergy/AdvReac Type Severity Reaction Status Date / Time No Known Allergies Allergy Verified 09/22/20 10:56 Review of Systems ROS Statement: Those systems with pertinent positive or pertinent negative responses have been documented in the HPI. ROS Other: All systems not noted in ROS Statement are negative. Past Medical History Additional Past Medical History / Comment(s): DOUGLAS, blind, down syndrome, History of Any Multi-Drug Resistant Organisms: None Reported Additional Past Surgical History / Comment(s): hemerrhoids, Past Psychological History: No Psychological Hx Reported Smoking Status: Never smoker Past Alcohol Use History: None Reported Past Drug Use History: None Reported General Exam Limitations: language barrier, altered mental status General appearance: alert, in no apparent distress, lethargic, other (Sunken eyes, obvious dehydration.) Head exam: Present: atraumatic, normocephalic, normal inspection Eye exam: Present: normal appearance, other (Bilateral cataracts). Absent: scleral icterus, conjunctival injection, periorbital swelling ENT exam: Present: mucous membranes dry Neck exam: Present: normal inspection Respiratory exam: Present: normal lung sounds bilaterally, other (Diminished lung sounds left side.). Absent: respiratory distress, wheezes, rales, rhonchi, stridor Cardiovascular Exam: Present: regular rate, normal rhythm, normal heart sounds. Absent: systolic murmur, diastolic murmur, rubs, gallop, clicks GI/Abdominal exam: Present: soft, normal bowel sounds. Absent: distended, tenderness, guarding, rebound, rigid Extremities exam: Present: normal inspection. Absent: tenderness Neurological exam: Present: alert Psychiatric exam: Present: normal affect, normal mood Skin exam: Present: warm, dry, intact, normal color. Absent: rash Course Vital Signs 09/22/20 09/22/20 09/22/20 10:15 11:00 13:29 Temperature 97.6 F 97.6 F Pulse Rate 95 98 Respiratory 20 20 20 Rate Blood Pressure 90/51 90/47 O2 Sat by Pulse 92 L 92 L Oximetry 09/22/20 13:47 Temperature Pulse Rate 96 Respiratory 20 Rate Blood Pressure 94/64 O2 Sat by Pulse 94 L Oximetry - Reevaluation(s) Reevaluation #1: 09/22/20 12:32 Upon reevaluation and lab results. Sepsis alert noted, blood cultures ordered, Zosyn started. At 12:30 PM EKG Findings - EKG Comments: EKG Findings:: Ventricular rate 103 bpm, ND interval 126 ms, QRS duration 80 ms, QTC 424 ms, PRT axes 92/81/33. Sinus tachycardia, otherwise normal ECG. Medical Decision Making - Medical Decision Making 64-year-old male with generalized weakness and lethargic decreased appetite and thirst last 2 weeks. Labs, 1 L normal saline, chest x-ray ordered. Labs: White blood cells 23.4 hemoglobin 12.1 hematocrit 37.5 plasma lactic acid 4.[address] of the chest and head ordered. Case discussed with Dr. Dior, patient will be admitted to the ICU for a large left-sided pleural effusion, lethargic, weakness. Dr. Gamble was consulted and will accept the admit with pulmonology on consult. - Lab Data Result diagrams: 09/22/20 10:42 09/22/20 10:42 Lab Results 09/22/20 09/22/20 09/22/20 Range/Units 10:42 10:42 10:42 WBC 23.4 H (3.8-10.6) k/uL RBC 3.71 L (4.30-5.90) m/uL Hgb 12.1 L (13.0-17.5) gm/dL Hct 37.5 L (39.0-53.0) % MCV 101.1 H (80.0-100.0) fL MCH 32.6 (25.0-35.0) pg MCHC 32.3 (31.0-37.0) g/dL RDW 13.7 (11.5-15.5) % Plt Count 567 H (150-450) k/uL MPV 7.7 Neutrophils % 89 % Lymphocytes % 7 % Monocytes % 3 % Eosinophils % 0 % Basophils % 0 % Neutrophils # 20.8 H (1.3-7.7) k/uL Lymphocytes # 1.7 (1.0-4.8) k/uL Monocytes # 0.6 (0-1.0) k/uL Eosinophils # 0.1 (0-0.7) k/uL Basophils # 0.0 (0-0.2) k/uL Macrocytosis Slight PT 12.0 (9.0-12.0) sec INR 1.1 (<1.2) APTT 25.7 (22.0-30.0) sec VBG pH (7.31-7.41) VBG pCO2 (37-51) mmHg VBG HCO3 (24-28) mmol/L Sodium 136 L (137-145) mmol/L Potassium 4.9 (3.5-5.1) mmol/L Chloride 98 (98-107) mmol/L Carbon Dioxide 28 (22-30) mmol/L Anion Gap 10 mmol/L BUN 23 H (9-20) mg/dL Creatinine 0.69 (0.66-1.25) mg/dL Est GFR (CKD-EPI)AfAm >90 (>60 ml/min/1.73 sqM) Est GFR (CKD-EPI)NonAf >90 (>60 ml/min/1.73 sqM) Glucose 94 (74-99) mg/dL Lactic Ac Sepsis Rflx Plasma Lactic Acid Niels (0.7-2.0) mmol/L Calcium 8.0 L (8.4-10.2) mg/dL Magnesium 2.2 (1.6-2.3) mg/dL Total Bilirubin 0.4 (0.2-1.3) mg/dL AST 39 (17-59) U/L ALT 19 (4-49) U/L Alkaline Phosphatase 142 H (38-126) U/L Troponin I (0.000-0.034) ng/mL NT-Pro-B Natriuret Pep pg/mL Total Protein 7.2 (6.3-8.2) g/dL Albumin 2.8 L (3.5-5.0) g/dL Coronavirus (PCR) (Not Detectd) 09/22/20 09/22/20 09/22/20 Range/Units 10:42 10:42 10:42 WBC (3.8-10.6) k/uL RBC (4.30-5.90) m/uL Hgb (13.0-17.5) gm/dL Hct (39.0-53.0) % MCV (80.0-100.0) fL MCH (25.0-35.0) pg MCHC (31.0-37.0) g/dL RDW (11.5-15.5) % Plt Count (150-450) k/uL MPV Neutrophils % % Lymphocytes % % Monocytes % % Eosinophils % % Basophils % % Neutrophils # (1.3-7.7) k/uL Lymphocytes # (1.0-4.8) k/uL Monocytes # (0-1.0) k/uL Eosinophils # (0-0.7) k/uL Basophils # (0-0.2) k/uL Macrocytosis PT (9.0-12.0) sec INR (<1.2) APTT (22.0-30.0) sec VBG pH (7.31-7.41) VBG pCO2 (37-51) mmHg VBG HCO3 (24-28) mmol/L Sodium (137-145) mmol/L Potassium (3.5-5.1) mmol/L Chloride (98-107) mmol/L Carbon Dioxide (22-30) mmol/L Anion Gap mmol/L BUN (9-20) mg/dL Creatinine (0.66-1.25) mg/dL Est GFR (CKD-EPI)AfAm (>60 ml/min/1.73 sqM) Est GFR (CKD-EPI)NonAf (>60 ml/min/1.73 sqM) Glucose (74-99) mg/dL Lactic Ac Sepsis Rflx Plasma Lactic Acid Neils 4.1 H* (0.7-2.0) mmol/L Calcium (8.4-10.2) mg/dL Magnesium (1.6-2.3) mg/dL Total Bilirubin (0.2-1.3) mg/dL AST (17-59) U/L ALT (4-49) U/L Alkaline Phosphatase (38-126) U/L Troponin I 0.019 (0.000-0.034) ng/mL NT-Pro-B Natriuret Pep 239 pg/mL Total Protein (6.3-8.2) g/dL Albumin (3.5-5.0) g/dL Coronavirus (PCR) (Not Detectd) 09/22/20 09/22/20 09/22/20 Range/Units 10:42 11:36 13:29 WBC (3.8-10.6) k/uL RBC (4.30-5.90) m/uL Hgb (13.0-17.5) gm/dL Hct (39.0-53.0) % MCV (80.0-100.0) fL MCH (25.0-35.0) pg MCHC (31.0-37.0) g/dL RDW (11.5-15.5) % Plt Count (150-450) k/uL MPV Neutrophils % % Lymphocytes % % Monocytes % % Eosinophils % % Basophils % % Neutrophils # (1.3-7.7) k/uL Lymphocytes # (1.0-4.8) k/uL Monocytes # (0-1.0) k/uL Eosinophils # (0-0.7) k/uL Basophils # (0-0.2) k/uL Macrocytosis PT (9.0-12.0) sec INR (<1.2) APTT (22.0-30.0) sec VBG pH 7.48 H (7.31-7.41) VBG pCO2 36 L (37-51) mmHg VBG HCO3 27 (24-28) mmol/L Sodium (137-145) mmol/L Potassium (3.5-5.1) mmol/L Chloride (98-107) mmol/L Carbon Dioxide (22-30) mmol/L Anion Gap mmol/L BUN (9-20) mg/dL Creatinine (0.66-1.25) mg/dL Est GFR (CKD-EPI)AfAm (>60 ml/min/1.73 sqM) Est GFR (CKD-EPI)NonAf (>60 ml/min/1.73 sqM) Glucose (74-99) mg/dL Lactic Ac Sepsis Rflx Y Plasma Lactic Acid Niels (0.7-2.0) mmol/L Calcium (8.4-10.2) mg/dL Magnesium (1.6-2.3) mg/dL Total Bilirubin (0.2-1.3) mg/dL AST (17-59) U/L ALT (4-49) U/L Alkaline Phosphatase (38-126) U/L Troponin I (0.000-0.034) ng/mL NT-Pro-B Natriuret Pep pg/mL Total Protein (6.3-8.2) g/dL Albumin (3.5-5.0) g/dL Coronavirus (PCR) Not Detected (Not Detectd) 09/22/20 Range/Units 14:07 WBC (3.8-10.6) k/uL RBC (4.30-5.90) m/uL Hgb (13.0-17.5) gm/dL Hct (39.0-53.0) % MCV (80.0-100.0) fL MCH (25.0-35.0) pg MCHC (31.0-37.0) g/dL RDW (11.5-15.5) % Plt Count (150-450) k/uL MPV Neutrophils % % Lymphocytes % % Monocytes % % Eosinophils % % Basophils % % Neutrophils # (1.3-7.7) k/uL Lymphocytes # (1.0-4.8) k/uL Monocytes # (0-1.0) k/uL Eosinophils # (0-0.7) k/uL Basophils # (0-0.2) k/uL Macrocytosis PT (9.0-12.0) sec INR (<1.2) APTT (22.0-30.0) sec VBG pH (7.31-7.41) VBG pCO2 (37-51) mmHg VBG HCO3 (24-28) mmol/L Sodium (137-145) mmol/L Potassium (3.5-5.1) mmol/L Chloride (98-107) mmol/L Carbon Dioxide (22-30) mmol/L Anion Gap mmol/L BUN (9-20) mg/dL Creatinine (0.66-1.25) mg/dL Est GFR (CKD-EPI)AfAm (>60 ml/min/1.73 sqM) Est GFR (CKD-EPI)NonAf (>60 ml/min/1.73 sqM) Glucose (74-99) mg/dL Lactic Ac Sepsis Rflx Plasma Lactic Acid Niels 2.3 H* (0.7-2.0) mmol/L Calcium (8.4-10.2) mg/dL Magnesium (1.6-2.3) mg/dL Total Bilirubin (0.2-1.3) mg/dL AST (17-59) U/L ALT (4-49) U/L Alkaline Phosphatase (38-126) U/L Troponin I (0.000-0.034) ng/mL NT-Pro-B Natriuret Pep pg/mL Total Protein (6.3-8.2) g/dL Albumin (3.5-5.0) g/dL Coronavirus (PCR) (Not Detectd) - EKG Data -: EKG Interpreted by Me EKG shows normal: sinus rhythm Rate: tachycardia EKG Comments: Ventricular rate 103 bpm, ND interval 126 ms, QRS duration 80 ms, QTC 424 ms, PRT axes 92/81/33. Sinus tachycardia, otherwise normal ECG. - Radiology Data Radiology results: report reviewed, image reviewed Chest x-ray: Very large opacity projects over the left hemidiaphragm on the frontal view but is not seen on the lateral view. The lower aspect of the left hemithorax is not well-visualized. This finding could represent a left lower lobe mass or large pleural effusion further evaluation is recommended. Atelectatic changes are seen in the right lung base without focal airspace di sease. There is a tubular-like lucency over the neck which could reflect esophageal dilatation or air within the trachea. Cardiomediastinal silhouette appears normal size. No acute osseous abnormality. Generalized osteopenia changes noted. Enhanced CT of the thorax recommended, if the renal function does not allow for IV contrast is obtained noncontrast study. CT of the chest: Large loculated left pleural effusion of simple density with peripheral enhancing pleura empyema cannot be entirely excluded. Left lower and upper lobe collapse underlying pneumonia cannot be entirely excluded. Large mediastinal lymph nodes may be reactive malignancy cannot be excluded. Severe narrowing of the left lingula and left lower lobe bronchi may be due to mass effect from pleural fluid versus external mass effect or endobronchial tumor. CT of the [place]: Moderate to narrowing proximal M1 segment left MCA. Moderate narrowing middle and 1 segment right MCA. 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 CSF density cyst measuring up to 3 cm stable since 2019 Disposition Clinical Impression: Large pleural effusion, Weakness, Lethargy Disposition: ADMITTED IP TO THIS HOSP Condition: Stable Is patient prescribed a controlled substance at d/c from ED?: No Referrals: Syed Francis MD [Primary Care Provider] - 1-2 days Time of Disposition: 14:31
[2020-09-22 13:36] LABS: VBG PH 7.48 (7.31-7.41)
[2020-09-22] MEDS ORDERED: VANCOMYCIN IV PER PHARMACY 1 EACH MISC MISCELLANE PRN (13:57)
--- NOTE | 2020-09-22 14:09 | CT ---
EXAMINATION TYPE: CT angio COW [place] DATE OF EXAM: 09/22/2020 COMPARISON: Brain CT dated 05/15/2018 HISTORY: altered mental status TECHNIQUE: CT scan of the head performed angiogram protocol CT DLP: 2439.7 (brain, COW, chest) mGycm Automated exposure control for dose reduction was used. FINDINGS: Internal carotid arteries in the neck and in the brain are patent. There is moderate to severe stenosis of the proximal M1 segment of the left MCA. Segments distal to t he area of stenosis are patent. There is moderate to severe stenosis of the middle M1 segment of the right MCA. Segments proximal and distal to the area of stenosis are patent. Anterior cerebral arteries are patent. Basilar artery and posterior cerebral arteries are patent. The right posterior cerebral artery appear s to have a persistent origin. A round CSF density is seen at the midline calvarium posteriorly measures 3.0 x 2.6 x 1.9 cm. It appe ars that the superior sagittal sinus is splayed by this cystic structure and slightly narrowed howeve r patent. Calcifications are again demonstrated in the bilateral basal ganglia and bilateral cerebellar hemisph eres. No evidence of acute intracranial hemorrhage. Persistent cavum septum pellucidum. Brain volume atroph y. No acute osseous abnormality. Mucosal sinus disease noted. IMPRESSION: 1. MODERATE TO NARROWING PROXIMAL M1 SEGMENT LEFT MCA. 2. MODERATE TO NARROWING MIDDLE M1 SEGMENT RIGHT MCA. 3. 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 4. CSF DENSITY CYST MEASURING UP TO 3 CM, STABLE SINCE 2018 LIKELY REPRESENTING ARACHNOID CYST.
[2020-09-22] MEDS ORDERED: VANCOMYCIN 1,000 MG in SODIUM CHLORIDE 0.9% 250 ML IVPB STA (14:10)
--- NOTE | 2020-09-22 14:23 | CT ---
EXAMINATION TYPE: CT chest w con DATE OF EXAM: 09/22/2020 COMPARISON: Chest x-ray from the same day and CT of the abdomen and pelvis dated 09/04/2018 HISTORY: mass CT DLP: 2439.7 (brain, COW, chest) mGycm Automated exposure control for dose reduction was used. TECHNIQUE: CT scan of the chest is performed with IV Contrast, patient injected with 100 mL of Isovue 370. MIP Images are created on CT scanner and reviewed. 3D reconstructed images are created on an independent workstation and reviewed. FINDINGS: LUNGS: There is a large left-sided loculated simple density pleural effusion. The surrounding pleura is enhancing and therefore infected fluid cannot be entirely excluded. There is significant collapse involving the left lower lobe. There is partial collapse involving the left lower lobes. There is severe narrowing of the left lingula and lower lobe bronchus. Bibasilar subsegmental atelect atic changes are seen. Linear opacities are seen in the right middle lobe which may be on the basis o f atelectasis. There is a 1.7 x 1.3 cm left pretracheal lymph node. There is also an enlarged lymph node in the pret liliya space with some calcifications which could indicate prior granulomatous disease. In the subca rinal space there is small soft tissue density which can also present in enlarged lymph node. Left hi lum is difficult to evaluate for adenopathy however there is no obvious adenopathy in either hilum. The heart is normal in size and there is no pericardial effusion. No thoracic aortic aneurysm. Low attenuating lesions are seen in the bilateral renal cortices more on the right likely representi ng cysts. No suspicious bony lesion. No acute fracture or dislocation. Degenerative changes seen in the right s houlder joint. Mild scoliosis noted in the spine with mild degenerative changes. IMPRESSION: 1. Large loculated left pleural effusion of simple density with peripheral enhancing pleura, empyema cannot be entirely excluded. 2. Left lower and upper lobe collapse, underlying pneumonia cannot be entirely excluded. 3. Large mediastinal lymph nodes, may be reactive, malignancy cannot be excluded. 4. Severe narrowing of the left lingula and left lower lobe bronchi may be due to mass effect from pl eural fluid versus external mass effect or endobronchial tumor. RECOMMENDATION: Clinical correlation for malignancy with continued imaging follow-up to resolution recommended.
[2020-09-22] MEDS ORDERED: NALOXONE 0.4 MG/ML 1 ML VIAL IV PRN (14:32)
[2020-09-22] MEDS ORDERED: CLOTRIMAZOLE 1% CREAM 30 GM TUBE TOPICAL PRN (17:31)
[2020-09-22] MEDS ORDERED: ALPRAZolam 1 MG TAB PO PRN (17:31)
[2020-09-22] MEDS ORDERED: LORazepam 1 MG TAB PO PRN (17:31)
[2020-09-22] MEDS ORDERED: ACETAMINOPHEN TAB 500 MG TAB PO PRN (17:51)
[2020-09-22] MEDS ORDERED: SODIUM CHLORIDE 0.9% 500 ML 500 ML IV ONE (17:52)
[2020-09-22] MEDS: ALPRAZolam 1 MG TAB PO SCH (18:22)
[2020-09-22] MEDS: DIVALPROEX 250 MG TABLET.DR PO SCH (18:25)
[2020-09-22] MEDS ORDERED: QUEtiapine 50 MG TAB PO SCH (19:00)
[2020-09-22] MEDS ORDERED: DIVALPROEX 250 MG TABLET.DR PO SCH (19:00)
[2020-09-22] MEDS ORDERED: DOCUSATE 100 MG CAP PO SCH (19:00)
[2020-09-22] MEDS: DEXTROSE 5%-0.45% NACL 1,000 ML IV SCH (19:05)
[2020-09-22 21:36] LABS: Basophils % (A) 0 %; Eosinophils # (A) 0.1 k/uL (0-0.7); Eosinophils % (A) 1 %; HCT 28.7 % (39.0-53.0); Lymphocytes # (A) 0.9 k/uL (1.0-4.8); Lymphocytes % (A) 4 %; MCH 33.7 pg (25.0-35.0); MCHC 33.2 g/dL (31.0-37.0); MCV 101.5 fL (80.0-100.0); Macrocytosis Slight; Mean Platelet Volume 8.4; Monocytes # (A) 1.4 k/uL (0-1.0); Monocytes % (A) 7 %; Neutrophils # (A) 16.8 k/uL (1.3-7.7); Neutrophils % (A) 87 %; Platelet Count 460 k/uL (150-450); RBC 2.83 m/uL (4.30-5.90); RDW 13.2 % (11.5-15.5); WBC 19.4 k/uL (3.8-10.6)
[2020-09-22] MEDS ORDERED: LIDOCAINE URO-JET JELLY 2% 5 ML KIT URETHRAL ONE (21:45)
[2020-09-22 21:47] LABS: HGB 9.5 gm/dL (13.0-17.5)
[2020-09-22 22:41] LABS: Appearance,Urine Clear (Clear); Bilirubin,Urine Negative (Negative); Blood,Urine Trace (Negative); Color,Urine Yellow; Glucose,Urine (UA) Negative (Negative); Ketones,Urine Negative (Negative); Leukocyte Esterase,Urine Trace (Negative); Mucus,Urine Rare /hpf; Nitrite,Urine Negative (Negative); Protein,Urine Trace (Negative); RBC,Urine 13 /hpf (0-5); Squamous Epithelial Cell,Urine <1 /hpf (0-4); Urobilinogen,Urine <2.0 mg/dL (<2.0); WBC,Urine 6 /hpf (0-5)
[2020-09-22 22:44] LABS: Specific Gravity,Urine >1.050 (1.001-1.035)
--- NOTE | 2020-09-22 22:53 | P.GSCN ---
History of Present Illness Consult date: 09/22/20 Reason for Consult: Urethral stricture disease Requesting physician: Nicholas Vela Jr History of present illness: The patient is a 64-year-old autistic white male. 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 He was brought him to the ER for these reasons. His sister states that he previously underwent a procedure for urethral stricture disease, and that he has been treated for recurrent UTIs the past several years. Bladder scan showed a bladder volume of 150 mL. Han catheter placement has been requested for monitoring of I's and O's, and the nursing staff were unable to place the catheter. Urinalysis obtained at the time of admission is not suspicious for infection. 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 Past Anesthesia/Blood Transfusion Reactions: No Reported Reaction Past Psychological History: No Psychological Hx Reported Smoking Status: Never smoker Past Alcohol Use History: None Reported Past Drug Use History: None Reported - Past Family History Father Family Medical History: Coronary Artery Disease (CAD), Diabetes Mellitus Mother Family Medical History: Coronary Artery Disease (CAD), Diabetes Mellitus Medications and Allergies Home Medications Medication Instructions Recorded Confirmed Type Docusate [Colace] 200 mg PO HS@1900 02/27/17 09/22/20 History Multivitamins, Thera [Multivitamin 1 tab PO DAILY@0600 02/27/17 09/22/20 History (formulary)] Divalproex [Depakote] 250 mg PO BID@0600,1900 05/15/18 09/22/20 History QUEtiapine [SEROquel] 50 mg PO HS@1900 05/15/18 09/22/20 History ALPRAZolam [Xanax] 1 mg PO BID@0600,1900 09/22/20 09/22/20 History ALPRAZolam [Xanax] 1 mg PO DAILY PRN 09/22/20 09/22/20 History Citrucel 500mg 500 mg PO DAILY@0600 09/22/20 09/22/20 History LORazepam [Ativan] 1 mg PO BID PRN 09/22/20 09/22/20 History Levothyroxine Sodium 88 mcg PO DAILY@59909/22/20 09/22/20 History Meloxicam [Mobic] 7.5 mg PO DAILY@59909/22/20 09/22/20 History Nystatin 100,000Unit/gm Cream 1 applic TOPICAL BID@0600,1900 09/22/20 09/22/20 History [Mycostatin Cream] Omeprazole 40 mg PO DAILY@59909/22/20 09/22/20 History Tinactin [place] Powder 1 applic TOPICAL DAILY PRN 09/22/20 09/22/20 History Allergies Allergy/AdvReac Type Severity Reaction Status Date / Time No Known Allergies Allergy Verified 09/22/20 10:56 Surgical - Exam Vital Signs Temp Pulse Resp BP Pulse Ox 97.6 F 95 20 90/51 92 L 09/22/20 10:15 09/22/20 10:15 09/22/20 10:15 09/22/20 10:15 09/22/20 10:15 - General well developed, well nourished, no distress - Respiratory normal respiratory effort - Genitourinary normal penis with no external lesions, testicles non-tender Results - Labs 09/22/20 21:24 09/22/20 10:42 Abnormal Lab Results - Last 24 Hours (Table) 09/22/20 09/22/20 09/22/20 Range/Units 10:42 10:42 10:42 WBC 23.4 H (3.8-10.6) k/uL RBC 3.71 L (4.30-5.90) m/uL Hgb 12.1 L (13.0-17.5) gm/dL Hct 37.5 L (39.0-53.0) % MCV 101.1 H (80.0-100.0) fL Plt Count 567 H (150-450) k/uL Neutrophils # 20.8 H (1.3-7.7) k/uL Lymphocytes # (1.0-4.8) k/uL Monocytes # (0-1.0) k/uL VBG pH (7.31-7.41) VBG pCO2 (37-51) mmHg Sodium 136 L (137-145) mmol/L BUN 23 H (9-20) mg/dL Plasma Lactic Acid Niels 4.1 H* (0.7-2.0) mmol/L Calcium 8.0 L (8.4-10.2) mg/dL Alkaline Phosphatase 142 H (38-126) U/L Albumin 2.8 L (3.5-5.0) g/dL Ur Specific [place] (1.001-1.035) Urine Protein (Negative) Urine Blood (Negative) Ur Leukocyte Esterase (Negative) Urine RBC (0-5) /hpf Urine WBC (0-5) /hpf Urine Mucus (None) /hpf 09/22/20 09/22/20 09/22/20 Range/Units 13:29 14:07 21:24 WBC 19.4 H (3.8-10.6) k/uL RBC 2.83 L (4.30-5.90) m/uL Hgb 9.5 L D (13.0-17.5) gm/dL Hct 28.7 L (39.0-53.0) % MCV 101.5 H (80.0-100.0) fL Plt Count 460 H (150-450) k/uL Neutrophils # 16.8 H (1.3-7.7) k/uL Lymphocytes # 0.9 L (1.0-4.8) k/uL Monocytes # 1.4 H (0-1.0) k/uL VBG pH 7.48 H (7.31-7.41) VBG pCO2 36 L (37-51) mmHg Sodium (137-145) mmol/L BUN (9-20) mg/dL Plasma Lactic Acid Niels 2.3 H* (0.7-2.0) mmol/L Calcium (8.4-10.2) mg/dL Alkaline Phosphatase (38-126) U/L Albumin (3.5-5.0) g/dL Ur Specific [place] (1.001-1.035) Urine Protein (Negative) Urine Blood (Negative) Ur Leukocyte Esterase (Negative) Urine RBC (0-5) /hpf Urine WBC (0-5) /hpf Urine Mucus (None) /hpf 09/22/20 Range/Units 22:20 WBC (3.8-10.6) k/uL RBC (4.30-5.90) m/uL Hgb (13.0-17.5) gm/dL Hct (39.0-53.0) % MCV (80.0-100.0) fL Plt Count (150-450) k/uL Neutrophils # (1.3-7.7) k/uL Lymphocytes # (1.0-4.8) k/uL Monocytes # (0-1.0) k/uL VBG pH (7.31-7.41) VBG pCO2 (37-51) mmHg Sodium (137-145) mmol/L BUN (9-20) mg/dL Plasma Lactic Acid Niels (0.7-2.0) mmol/L Calcium (8.4-10.2) mg/dL Alkaline Phosphatase (38-126) U/L Albumin (3.5-5.0) g/dL Ur Specific [place] >1.050 H (1.001-1.035) Urine Protein Trace H (Negative) Urine Blood Trace H (Negative) Ur Leukocyte Esterase Trace H (Negative) Urine RBC 13 H (0-5) /hpf Urine WBC 6 H (0-5) /hpf Urine Mucus Rare H (None) /hpf Diabetes panel 09/22/20 Range/Units 10:42 Sodium 136 L (137-145) mmol/L Potassium 4.9 (3.5-5.1) mmol/L Chloride 98 (98-107) mmol/L Carbon Dioxide 28 (22-30) mmol/L BUN 23 H (9-20) mg/dL Creatinine 0.69 (0.66-1.25) mg/dL Glucose 94 (74-99) mg/dL Calcium 8.0 L (8.4-10.2) mg/dL AST 39 (17-59) U/L ALT 19 (4-49) U/L Alkaline Phosphatase 142 H (38-126) U/L Total Protein 7.2 (6.3-8.2) g/dL Albumin 2.8 L (3.5-5.0) g/dL Calcium panel 09/22/20 Range/Units 10:42 Calcium 8.0 L (8.4-10.2) mg/dL Albumin 2.8 L (3.5-5.0) g/dL Pituitary panel 09/22/20 Range/Units 10:42 Sodium 136 L (137-145) mmol/L Potassium 4.9 (3.5-5.1) mmol/L Chloride 98 (98-107) mmol/L Carbon Dioxide 28 (22-30) mmol/L BUN 23 H (9-20) mg/dL Creatinine 0.69 (0.66-1.25) mg/dL Glucose 94 (74-99) mg/dL Calcium 8.0 L (8.4-10.2) mg/dL Adrenal panel 09/22/20 Range/Units 10:42 Sodium 136 L (137-145) mmol/L Potassium 4.9 (3.5-5.1) mmol/L Chloride 98 (98-107) mmol/L Carbon Dioxide 28 (22-30) mmol/L BUN 23 H (9-20) mg/dL Creatinine 0.69 (0.66-1.25) mg/dL Glucose 94 (74-99) mg/dL Calcium 8.0 L (8.4-10.2) mg/dL Total Bilirubin 0.4 (0.2-1.3) mg/dL AST 39 (17-59) U/L ALT 19 (4-49) U/L Alkaline Phosphatase 142 H (38-126) U/L Total Protein 7.2 (6.3-8.2) g/dL Albumin 2.8 L (3.5-5.0) g/dL Assessment and Plan (1) Urethral stricture Current Visit: Yes Status: Acute Code(s): N35.919 - UNSPECIFIED URETHRAL STRICTURE, MALE, UNSPECIFIED SITE SNOMED Code(s): 31262622 Plan: Urethral dilation was performed, and a 16-[place] Han catheter was placed. The catheter may be removed when no longer medically needed. Please notify us if we can be of further assistance.
--- NOTE | 2020-09-22 22:55 | P.PCN ---
Date of Procedure: 09/22/20 Preoperative Diagnosis: Urethral stricture Postoperative Diagnosis: Same Procedure(s) Performed: Urethral dilation, Han catheter insertion Anesthesia: local Surgeon: Rick Cruz Estimated Blood Loss (ml): 0 Pathology: none sent Condition: stable Disposition: no change Indications for Procedure: The patient is a 64-year-old white male with a history of urethral stricture disease. Attempts to place a Han catheter were unsuccessful due to a small urethral meatus. Operative Findings: Meatal stenosis, distal urethral stricture disease Description of Procedure: The patient lied supine in his hospital bed. The penis was prepped and draped sterilely. 2% lidocaine gel was administered intraurethrally. Antonieta sounds were used to dilate the distal urethra from 12-Luxembourger to 20-Luxembourger. Initial placement of the 12-Luxembourger sound was difficult. It was then possible to pass a 16-Luxembourger Han catheter into the bladder, with return of clear yellow urine.
[2020-09-22] MEDS: VANCOMYCIN 1,000 MG in SODIUM CHLORIDE 0.9% 250 ML IVPB SCH (23:55)
[2020-09-23] MEDS: DOCUSATE 100 MG CAP PO SCH ×2 (00:04→20:35)
[2020-09-23] MEDS: QUEtiapine 50 MG TAB PO SCH ×2 (00:04→20:35)
[2020-09-23] MEDS: DEXTROSE 5%-0.45% NACL 1,000 ML IV SCH ×3 (04:50→20:36)
[2020-09-23] MEDS: MELOXICAM 7.5 MG TAB PO SCH (05:30)
[2020-09-23] MEDS: PANTOPRAZOLE 40 MG TABLET PO SCH (05:30)
[2020-09-23] MEDS: MULTIVITAMINS, THERA 1 EACH TAB PO SCH (05:30)
[2020-09-23] MEDS: DIVALPROEX 250 MG TABLET.DR PO SCH ×2 (05:30→17:20)
[2020-09-23] MEDS: LEVOTHYROXINE 88 MCG TAB PO SCH (05:30)
[2020-09-23] MEDS: ALPRAZolam 1 MG TAB PO SCH ×2 (05:30→17:20)
[2020-09-23] MEDS ORDERED: CITRUCEL 500 MG PO SCH (06:00)
[2020-09-23 07:45] LABS: Basophils % (A) 0 %; Eosinophils # (A) 0.1 k/uL (0-0.7); Eosinophils % (A) 0 %; HGB 11.3 gm/dL (13.0-17.5); Hypochromasia Slight; Lymphocytes % (A) 4 %; MCH 33.3 pg (25.0-35.0); MCHC 32.1 g/dL (31.0-37.0); MCV 103.5 fL (80.0-100.0); Macrocytosis Slight; Mean Platelet Volume 8.4; Monocytes # (A) 0.8 k/uL (0-1.0); Monocytes % (A) 4 %; Neutrophils # (A) 21.4 k/uL (1.3-7.7); Neutrophils % (A) 91 %; Platelet Count 553 k/uL (150-450); RBC 3.38 m/uL (4.30-5.90); RDW 13.2 % (11.5-15.5); WBC 23.4 k/uL (3.8-10.6)
[2020-09-23 08:09] LABS: ALT 18 U/L (4-49); AST 38 U/L (17-59); African American GFR (CKD) >90 (>60 ml/min/1.73 sqM); Albumin 2.3 g/dL (3.5-5.0); Alkaline Phosphatase 182 U/L (38-126); Anion Gap 6 mmol/L; Blood Urea Nitrogen 17 mg/dL (9-20); Calcium 7.5 mg/dL (8.4-10.2); Carbon Dioxide 27 mmol/L (22-30); Chloride 103 mmol/L (98-107); Glucose 96 mg/dL (74-99); Non-African American GFR(CKD) >90 (>60 ml/min/1.73 sqM); Potassium 4.8 mmol/L (3.5-5.1); Sodium 136 mmol/L (137-145); Total Bilirubin 0.2 mg/dL (0.2-1.3); Total Protein 6.5 g/dL (6.3-8.2)
[2020-09-23] MEDS ORDERED: LEVOFLOXACIN 500MG-D5W PMX 500 MG in DEXTROSE/WATER 1 100ML.BAG IVPB SCH (09:00)
[2020-09-23] MEDS: VANCOMYCIN 1,000 MG in SODIUM CHLORIDE 0.9% 250 ML IVPB SCH ×2 (10:52→23:23)
[2020-09-23] MEDS: PIPERACILLIN-TAZOBACTAM 3.375 GM in SODIUM CHLORIDE 0.9% 100 ML IVPB SCH ×2 (12:33→20:34)
--- NOTE | 2020-09-23 14:08 | P.CNPUL ---
History of Present Illness Consult date: 09/23/20 Reason for consult: dyspnea, cough History of present illness: This is a 64-year-old male patient, who cannot volunteer any medical information. I interviewed the family members and 12 his sisters were in the room with him in addition to the caregiver a DSE home and he resides. He is known to have Down syndrome. He is known to have significant mental retardation, impaired speech, and he is also visually impaired and blind and deaf. The patient was noted to be very much lethargic and had diminished oral intake and for that reason he was brought into the hospital. He was found to have a dry cough and more recently was noted to have some increased choking on the foot material. On admission, the patient was echo was at 19.4. Platelet count was 460. UA was showing 6 WBCs, 13 RBCs, electrolytes are normal, renal function was normal. The COVID-19 testing was negative. The chest x-ray showed significant opacification of the left lung and for that reason a CAT scan of the chest was done. Review of the CAT scan showed a large loculated left-sided pleural effusion and significant collapse of the left lower lobe. The left lower lobe was partially collapsed. There was narrowing of the left lingular segment and left lower lobe bronchus and there was also bibasilar subsegmental atelectatic change. The patient had a large left-sided loculated pleural effusion with increased density in the surrounding pleura was enhancing and the possibility of a pleural space infection and empyema was obviously raises. There was also mediastinal lymph nodes. As part of a mental status change workup, the patient underwent a computed tomography scan of his head that showed moderate narrowing of the proximal M1 segment of left MCA, moderate narrowing of the middle M1 segment of right MCA, and there was also an arachnoid cyst. The patient was started on a combination of Zosyn and vancomycin. The patient was admitted to the medical floor. Pulmonary consultation was requested. CBC much more interactive on today's evaluation. 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 Past Anesthesia/Blood Transfusion Reactions: No Reported Reaction Past Psychological History: No Psychological Hx Reported Smoking Status: Never smoker Past Alcohol Use History: None Reported Past Drug Use History: None Reported - Past Family History Father Family Medical History: Coronary Artery Disease (CAD), Diabetes Mellitus Mother Family Medical History: Coronary Artery Disease (CAD), Diabetes Mellitus Medications and Allergies Home Medications Medication Instructions Recorded Confirmed Type Docusate [Colace] 200 mg PO HS@1900 02/27/17 09/22/20 History Multivitamins, Thera [Multivitamin 1 tab PO DAILY@0600 02/27/17 09/22/20 History (formulary)] Divalproex [Depakote] 250 mg PO BID@0600,1900 05/15/18 09/22/20 History QUEtiapine [SEROquel] 50 mg PO HS@1900 05/15/18 09/22/20 History ALPRAZolam [Xanax] 1 mg PO BID@0600,1900 09/22/20 09/22/20 History ALPRAZolam [Xanax] 1 mg PO DAILY PRN 09/22/20 09/22/20 History Citrucel 500mg 500 mg PO DAILY@0600 09/22/20 09/22/20 History LORazepam [Ativan] 1 mg PO BID PRN 09/22/20 09/22/20 History Levothyroxine Sodium 88 mcg PO DAILY@0609/22/20 09/22/20 History Meloxicam [Mobic] 7.5 mg PO DAILY@0600 09/22/20 09/22/20 History Nystatin 100,000Unit/gm Cream 1 applic TOPICAL BID@0600,189909/22/20 09/22/20 History [Mycostatin Cream] Omeprazole 40 mg PO DAILY@0600 09/22/20 09/22/20 History Tinactin [place] Powder 1 applic TOPICAL DAILY PRN 09/22/20 09/22/20 History Allergies Allergy/AdvReac Type Severity Reaction Status Date / Time No Known Allergies Allergy Verified 09/22/20 10:56 Physical Exam Vitals: Vital Signs Temp Pulse Pulse Resp BP BP Pulse Ox 09/23/20 13:45 87 20 09/23/20 12:00 99.3 F 87 20 91/63 91 L 09/23/20 08:00 99.7 F H 111 H 20 104/60 91 L 09/23/20 04:00 97.7 F 89 21 86/57 90 L 09/23/20 01:59 89/61 09/23/20 01:37 88 20 09/23/20 00:00 97.7 F 88 20 80/50 92 L 09/22/20 21:37 82/57 09/22/20 20:00 98 20 09/22/20 19:59 86/53 09/22/20 19:49 97.6 F 98 94 H 80/46 94 L 09/22/20 16:35 22 09/22/20 15:31 101.5 F H 98 20 96/50 93 L 09/22/20 14:47 92 18 102/68 93 L Intake and Output 09/22/20 09/23/20 09/23/20 22:59 06:59 14:59 Intake Total 0 1150 0 Output Total 400 300 Balance 0 750 -300 Intake: Intake, IV Titration 1150 Amount Dextrose 5%-0.45% NaCl 1, 1150 000 ml @ 100 mls/hr IV . Q10H [facility] Rx#:[id number] Oral 0 0 Output: Urine 400 300 Other: Voiding Method Urinal Indwelling Catheter Indwelling Catheter Diaper # Voids 1 # Bowel Movements 1 Weight 56.5 kg 59 kg The patient is active, laying down comfortably in bed. No acute respiratory distress. He has typical Down's features. Head exam was generally normal. There was no scleral icterus or corneal arcus. Mucous membranes were moist. Neck was supple and without jugular venous distension, thyromegaly, or carotid bruits. Carotids were easily palpable bilaterally. There was no adenopathy. Lungs sounds are diminished in the left lung base along with some dullness to percussion.. breath sounds in the right are essentially within normal limits. Cardiac exam revealed the PMI to be normally situated and sized. The rhythm was regular and no extrasystoles were noted during several minutes of auscultation. The first and second heart sounds were normal and physiologic splitting of the second heart sound was noted. There were no murmurs, rubs, clicks, or gallops. Abdominal exam revealed normal bowel sounds. The abdomen was soft, non-tender, and without masses, organomegaly, or appreciable enlargement of the abdominal aorta. Examination of the extremities revealed easily palpable radial, femoral and pedal pulses. There was no cyanosis, clubbing or edema.\ Examination of the skin revealed no evidence of significant rashes, suspicious appearing nevi or other concerning lesions. Results - Laboratory Findings CBC and BMP: 09/23/20 07:06 09/23/20 07:06 PT/INR, D-dimer PT 12.0 sec (9.0-12.0) 09/22/20 10:42 INR 1.1 (<1.2) 09/22/20 10:42 Abnormal lab findings: Abnormal Labs 09/22/20 09/22/20 09/22/20 10:42 10:42 10:42 WBC 23.4 H RBC 3.71 L Hgb 12.1 L Hct 37.5 L MCV 101.1 H Plt Count 567 H Neutrophils # 20.8 H Lymphocytes # Monocytes # VBG pH VBG pCO2 Sodium 136 L BUN 23 H Creatinine Plasma Lactic Acid Niels 4.1 H* Calcium 8.0 L Alkaline Phosphatase 142 H Albumin 2.8 L Ur Specific [place] Urine Protein Urine Blood Ur Leukocyte Esterase Urine RBC Urine WBC Urine Mucus 09/22/20 09/22/20 09/22/20 13:29 14:07 21:24 WBC 19.4 H RBC 2.83 L Hgb 9.5 L D Hct 28.7 L MCV 101.5 H Plt Count 460 H Neutrophils # 16.8 H Lymphocytes # 0.9 L Monocytes # 1.4 H VBG pH 7.48 H VBG pCO2 36 L Sodium BUN Creatinine Plasma Lactic Acid Niels 2.3 H* Calcium Alkaline Phosphatase Albumin Ur Specific [place] Urine Protein Urine Blood Ur Leukocyte Esterase Urine RBC Urine WBC Urine Mucus 09/22/20 09/23/20 09/23/20 22:20 07:06 07:06 WBC 23.4 H RBC 3.38 L Hgb 11.3 L Hct 35.0 L MCV 103.5 H Plt Count 553 H Neutrophils # 21.4 H Lymphocytes # Monocytes # VBG pH VBG pCO2 Sodium 136 L BUN Creatinine 0.58 L Plasma Lactic Acid Niels Calcium 7.5 L Alkaline Phosphatase 182 H Albumin 2.3 L Ur Specific [place] >1.050 H Urine Protein Trace H Urine Blood Trace H Ur Leukocyte Esterase Trace H Urine RBC 13 H Urine WBC 6 H Urine Mucus Rare H - Diagnostic Findings Chest x-ray: image reviewed CT scan - chest: image reviewed Assessment and Plan Plan: 1 large loculated left-sided pleural effusion with enhancement of the lining of the lung and increased density within the fluid, highly suggestive of empyema. Consider aspiration pneumonia with parapneumonic pleural effusion/empyema in a patient who is 64 years of age with Down syndrome who seems to be having difficu lties with swallow. High suspicious for empyema/pleural space infection. Malignancy cannot be completely excluded 2 leukocytosis secondary to above, white cell count is up to 23 3 shortness of breath secondary to above 4 altered mentation secondary to above, currently back to baseline 5 Down syndrome 6 mental retardation 7 possible difficulties in swallowing, high risk for aspiration at least on clinical grounds 8 deaf and blind 9 bedridden and the patient lives in an [facility] home 10 hypothyroidism Plan Discussed the findings with the patient's family including 2 of the sisters were at the bedside Explained to them the current condition and my suspicions for an underlying pleural space infection. My recommendation was to proceed with a diagnostic thoracentesis. The sisters declined the procedure as they have commitment not to do any form of invasive procedures on him taken account his underlying Down syndrome and mental retardation and debility in addition to the fact that the patient is expected his life expectancy is being a Down syndrome patient. They clearly understand that treatment would not be successful and last a pleural effusion drained for diagnostic or therapeutic purposes. Nevertheless, they decided to proceed with conservative management of antibiotics which they clearly understood that this would be suboptimal. I suggested continuing the treatment. Obtaining a swallow evaluation. The patient looks quite debilitated. An official records status evaluation is to be done. Recommended DNR/DNI CODE STATUS. Continue same treatment for now. We'll continue following up this patient periodically. Prognosis poor baseline above-mentioned comorbidi ties. No thoracentesis was done based on family's wishes.
[2020-09-23] MEDS ORDERED: AZITHROMYCIN 500 MG in SODIUM CHLORIDE 0.9% 250 ML IVPB SCH (21:00)
--- NOTE | 2020-09-23 22:27 | P.CONS ---
History of Present Illness - Reason for Consult Consult date: 09/23/20 Empyema Requesting physician: Nicholas Vela Jr - Chief Complaint weakness and shortness of breath x weeks - History of Present Illness Patient is a 64 yr old male with a past medical he significant for Down syndrome in this patient was brought into the hospital for evaluation of lethargy and decreased oral intake patient also noticed to have a dry cough and noticed to have some increased choking on the food material with the symptom the patient was brought into the ER on arrival to the ER the patient was initially febrile septic spiked a fever of 101.5 F head patient was hypoxic requiring supplemental oxygen therapy patient did have 120 23,000 creatinine was normal lactic acid was elevated procalcitonin is elevated CRP was chronically sent was negative patient also have a urinary retention with a stricture 40 the patient has been evaluated by urology and the patient is status post urethral dilatation and Han catheter insertion patient did have a chest x-ray large opacity projecting over the left hemidiaphragm on the lateral view concerning for left lower lobe mass CT of the chest was done which did show a large loculated left pleural effusion empyema not excluded left lower upper lobe collapse underlying pneumonia not excluded patient will be treated with vancomycin and Zosyn infectious disease was consulted for further management of antibiotic therapy, most information has been obtained from the family at the bedside as well as review of the chart as the patient himself was unable to provide any history Review of Systems Positive points has been mentioned in HPI complete review could not be obtained because of his underlying mental status Past Medical History Past Medical History: Thyroid Disorder Additional Past Medical History / Comment(s): [place], blind, down syndrome, hemorrhoids, hypothyroidism History of Any Multi-Drug Resistant Organisms: None Reported Additional Past Surgical History / Comment(s): hemerrhoids, 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 Past Anesthesia/Blood Transfusion Reactions: No Reported Reaction Past Psychological History: No Psychological Hx Reported Smoking Status: Never smoker Past Alcohol Use History: None Reported Past Drug Use History: None Reported - Past Family History Father Family Medical History: Coronary Artery Disease (CAD), Diabetes Mellitus Mother Family Medical History: Coronary Artery Disease (CAD), Diabetes Mellitus Medications and Allergies Home Medications Medication Instructions Recorded Confirmed Type Docusate [Colace] 200 mg PO HS@1900 02/27/17 09/22/20 History Multivitamins, Thera [Multivitamin 1 tab PO DAILY@0600 02/27/17 09/22/20 History (formulary)] Divalproex [Depakote] 250 mg PO BID@0600,189905/15/18 09/22/20 History QUEtiapine [SEROquel] 50 mg PO HS@189905/15/18 09/22/20 History ALPRAZolam [Xanax] 1 mg PO BID@0600,189909/22/20 09/22/20 History ALPRAZolam [Xanax] 1 mg PO DAILY PRN 09/22/20 09/22/20 History Citrucel 500mg 500 mg PO DAILY@59909/22/20 09/22/20 History LORazepam [Ativan] 1 mg PO BID PRN 09/22/20 09/22/20 History Levothyroxine Sodium 88 mcg PO DAILY@59909/22/20 09/22/20 History Meloxicam [Mobic] 7.5 mg PO DAILY@0609/22/20 09/22/20 History Nystatin 100,000Unit/gm Cream 1 applic TOPICAL BID@0600,189909/22/20 09/22/20 History [Mycostatin Cream] Omeprazole 40 mg PO DAILY@59909/22/20 09/22/20 History Tinactin [place] Powder 1 applic TOPICAL DAILY PRN 09/22/20 09/22/20 History Allergies Allergy/AdvReac Type Severity Reaction Status Date / Time No Known Allergies Allergy Verified 09/22/20 10:56 Physical Exam Vitals: Vital Signs Temp Pulse Resp BP Pulse Ox 09/23/20 13:45 87 20 09/23/20 12:00 99.3 F 87 20 91/63 91 L 09/23/20 08:00 99.7 F H 111 H 20 104/60 91 L 09/23/20 04:00 97.7 F 89 21 86/57 90 L 09/23/20 01:59 89/61 09/23/20 01:37 88 20 09/23/20 00:00 97.7 F 88 20 80/50 92 L 09/22/20 21:37 82/57 09/22/20 20:00 98 20 09/22/20 19:59 86/53 09/22/20 19:49 97.6 F 98 94 H 80/46 94 L 09/22/20 16:35 22 Intake and Output 09/23/20 09/23/20 09/23/20 06:59 14:59 22:59 Intake Total 1150 0 Output Total 400 300 Balance 750 -300 Intake: Intake, IV Titration 1150 Amount Dextrose 5%-0.45% NaCl 1, 1150 000 ml @ 100 mls/hr IV . Q10H [facility] Rx#:[id number] Oral 0 Output: Urine 400 300 Other: Voiding Method Indwelling Catheter Indwelling Catheter # Bowel Movements 1 1 Weight 59 kg GENERAL DESCRIPTION: Middle-aged male lying in bed, no distress. No tachypnea or accessory muscle of respiration use. HEENT: Shows Pallor , no scleral icterus. Oral mucous membrane is dry. No pharyngeal erythema or thrush NECK: Trachea central, no thyromegaly. LUNGS: Unlabored breathing. Decreased breath sounds at base. No wheeze or crackle. HEART: S1, S2, regular rate and rhythm. No loud murmur ABDOMEN: Soft, no tenderness , guarding or rigidity, no organomegaly EXTREMITIES: No edema of feet. SKIN: No rash, no masses palpable. NEUROLOGICAL: The patient is nonverbal orientation could not be determined Results CBC & Chem 7: 09/23/20 07:06 09/23/20 07:06 Labs: Abnormal Lab Results - Last 24 Hours (Table) 09/22/20 09/22/20 09/23/20 Range/Units 21:24 22:20 07:06 WBC 19.4 H 23.4 H (3.8-10.6) k/uL RBC 2.83 L 3.38 L (4.30-5.90) m/uL Hgb 9.5 L D 11.3 L (13.0-17.5) gm/dL Hct 28.7 L 35.0 L (39.0-53.0) % MCV 101.5 H 103.5 H (80.0-100.0) fL Plt Count 460 H 553 H (150-450) k/uL Neutrophils # 16.8 H 21.4 H (1.3-7.7) k/uL Lymphocytes # 0.9 L (1.0-4.8) k/uL Monocytes # 1.4 H (0-1.0) k/uL Sodium (137-145) mmol/L Creatinine (0.66-1.25) mg/dL Calcium (8.4-10.2) mg/dL Alkaline Phosphatase (38-126) U/L Albumin (3.5-5.0) g/dL Procalcitonin (0.02-0.09) ng/mL Ur Specific [place] >1.050 H (1.001-1.035) Urine Protein Trace H (Negative) Urine Blood Trace H (Negative) Ur Leukocyte Esterase Trace H (Negative) Urine RBC 13 H (0-5) /hpf Urine WBC 6 H (0-5) /hpf Urine Mucus Rare H (None) /hpf 09/23/20 09/23/20 Range/Units 07:06 07:06 WBC (3.8-10.6) k/uL RBC (4.30-5.90) m/uL Hgb (13.0-17.5) gm/dL Hct (39.0-53.0) % MCV (80.0-100.0) fL Plt Count (150-450) k/uL Neutrophils # (1.3-7.7) k/uL Lymphocytes # (1.0-4.8) k/uL Monocytes # (0-1.0) k/uL Sodium 136 L (137-145) mmol/L Creatinine 0.58 L (0.66-1.25) mg/dL Calcium 7.5 L (8.4-10.2) mg/dL Alkaline Phosphatase 182 H (38-126) U/L Albumin 2.3 L (3.5-5.0) g/dL Procalcitonin 0.93 H (0.02-0.09) ng/mL Ur Specific [place] (1.001-1.035) Urine Protein (Negative) Urine Blood (Negative) Ur Leukocyte Esterase (Negative) Urine RBC (0-5) /hpf Urine WBC (0-5) /hpf Urine Mucus (None) /hpf Microbiology - Last 24 Hours (Table) 09/22/20 13:29 Blood Culture - Preliminary Blood No Growth after 24 hours 09/22/20 13:29 Blood Culture - Preliminary Blood No Growth after 24 hours Assessment and Plan Assessment: patient presented to hospital with sepsis and hospital have fever elevated white count tachycardia associated left lower lobe pneumonia and concern for a loculated effusion/empyema and need to cover for the community-acquired as well as nosocomial pathogen and will need either thoracotomy or chest tube placement for drainage of this empyema for cultures, however family members do not want the patient to go to any this procedure and wanted the patient to go hospice Plan: 1-we will follow the family wishes and the plan is for hospice antibiotic should be discontinued as there is no role for antibiotic treatment if the goal of treatment is comfort and not cure this has been explained detail to the family member at the bedside 2-if any change in the family mind and they wanted to go for thoracocentesis versus thoracotomy antibiotic may be considered Thank you for this consultation
[2020-09-24] MEDS: PIPERACILLIN-TAZOBACTAM 3.375 GM in SODIUM CHLORIDE 0.9% 100 ML IVPB SCH ×2 (04:39→11:01)
[2020-09-24] MEDS: MELOXICAM 7.5 MG TAB PO SCH (06:31)
[2020-09-24] MEDS: LEVOTHYROXINE 88 MCG TAB PO SCH (06:31)
[2020-09-24] MEDS: MULTIVITAMINS, THERA 1 EACH TAB PO SCH (06:31)
[2020-09-24] MEDS: PANTOPRAZOLE 40 MG TABLET PO SCH (06:31)
[2020-09-24] MEDS: ALPRAZolam 1 MG TAB PO SCH (06:31)
[2020-09-24] MEDS: DIVALPROEX 250 MG TABLET.DR PO SCH (06:31)
[2020-09-24] MEDS: DEXTROSE 5%-0.45% NACL 1,000 ML IV SCH (08:14)
[2020-09-24 08:47] VITALS: BP 93/53; PULSE 106; RESP 19; TEMP 97.6
[2020-09-24 09:54] LABS: African American GFR (CKD) >90 (>60 ml/min/1.73 sqM); Non-African American GFR(CKD) >90 (>60 ml/min/1.73 sqM)
[2020-09-24] MEDS ORDERED: VANCOMYCIN TROUGH DUE 1 EACH MISC MISCELLANE ONE (10:00)
[2020-09-24] MEDS: VANCOMYCIN 1,000 MG in SODIUM CHLORIDE 0.9% 250 ML IVPB SCH (11:01)
--- NOTE | 2020-09-24 11:07 | P.PN ---
Subjective Progress Note Date: 09/24/20 This is a 64-year-old male patient, who cannot volunteer any medical information. I interviewed the family members and 12 his sisters were in the room with him in addition to the caregiver a [facility] home and he resides. He is known to have Down syndrome. He is known to have significant mental retardation, impaired speech, and he is also visually impaired and blind and deaf. The patient was noted to be very much lethargic and had diminished oral intake and for that reason he was brought into the hospital. He was found to have a dry cough and more recently was noted to have some increased choking on the foot material. On admission, the patient was echo was at 19.4. Platelet count was 460. UA was showing 6 WBCs, 13 RBCs, electrolytes are normal, renal function was normal. The COVID-19 testing was negative. The chest x-ray showed significant opacification of the left lung and for that reason a CAT scan of the chest was done. Review of the CAT scan showed a large loculated left-sided pleu ral effusion and significant collapse of the left lower lobe. The left lower lobe was partially collapsed. There was narrowing of the left lingular segment and left lower lobe bronchus and there was also bibasilar subsegmental atelectatic change. The patient had a large left-sided loculated pleural effusion with increased density in the surrounding pleura was enhancing and the possibility of a pleural space infection and empyema was obviously raises. There was also mediastinal lymph nodes. As part of a mental status change workup, the patient underwent a computed tomography scan of his head that showed moderate narrowing of the proximal M1 segment of left MCA, moderate narrowing of the middle M1 segment of right MCA, and there was also an arachnoid cyst. The patient was started on a combination of Zosyn and vancomycin. The patient was admitted to the medical floor. Pulmonary consultation was requested. CBC much more interactive on today's evaluation. 2020, the patient is slightly more lethargic compared to yesterday. Oral intake is minimal. Resting comfortably in bed. Family is at the bedside. Patient was seen by infectious disease. The decision was not to do any interventions and the patient will be going home with hospice care today. He is comfortable. No hemodynamic instability. He is on oxygen. Objective - Vital Signs Vital signs: Vital Signs Temp 97.6 F 09/24/20 08:00 Pulse 106 H 09/24/20 08:00 Resp 19 09/24/20 08:00 BP 93/53 09/24/20 08:00 Pulse Ox 91 L 09/24/20 08:00 Intake & Output 09/23/20 09/24/20 09/24/20 18:59 06:59 18:59 Intake Total 120 400 Output Total 901 700 Balance -781 -300 Weight 60.5 kg Intake: Oral 120 400 Output: Urine 900 700 Uretheral (Han) 700 Stool 1 Other: Voiding Method Indwelling Catheter Indwelling Catheter Indwelling Catheter # Bowel Movements 1 - Exam The patient is active, laying down comfortably in bed. No acute respiratory distress. He has typical Down's features. Head exam was generally normal. There was no scleral icterus or corneal arcus. Mucous membranes were moist. Neck was supple and without jugular venous distension, thyromegaly, or carotid bruits. Carotids were easily palpable bilaterally. There was no adenopathy. Lungs sounds are diminished in the left lung base along with some dullness to percussion.. breath sounds in the right are essentially within normal limits. Cardiac exam revealed the PMI to be normally situated and sized. The rhythm was regular and no extrasystoles were noted during several minutes of auscultation. The first and second heart sounds were normal and physiologic splitting of the second heart sound was noted. There were no murmurs, rubs, clicks, or gallops. Abdominal exam revealed normal bowel sounds. The abdomen was soft, non-tender, and without masses, organomegaly, or appreciable enlargement of the abdominal aorta. Examination of the extremities revealed easily palpable radial, femoral and pedal pulses. There was no cyanosis, clubbing or edema.\ Examination of the skin revealed no evidence of significant rashes, suspicious appearing nevi or other concerning lesions. - Labs CBC & Chem 7: 09/23/20 07:06 09/24/20 08:00 Labs: Abnormal Lab Results - Last 24 Hours (Table) 09/23/20 09/24/20 Range/Units 07:06 08:00 Creatinine 0.63 L (0.66-1.25) mg/dL Procalcitonin 0.93 H (0.02-0.09) ng/mL Microbiology - Last 24 Hours (Table) 09/23/20 12:15 Urine Culture - Preliminary Urine,Catheterized 09/22/20 13:29 Blood Culture - Preliminary Blood No Growth after 24 hours 09/22/20 13:29 Blood Culture - Preliminary Blood No Growth after 24 hours Assessment and Plan Plan: 1 large loculated left-sided pleural effusion with enhancement of the lining of the lung and increased density within the fluid, highly suggestive of empyema. Consider aspiration pneumonia with parapneumonic pleural effusion/empyema in a patient who is 64 years of age with Down syndrome who seems to be having difficulties with swallow. High suspicious for empyema/pleural space infection. Malignancy cannot be completely excluded 2 leukocytosis secondary to above, white cell count is up to 23 3 shortness of breath secondary to above 4 altered mentation secondary to above, currently back to baseline 5 Down syndrome 6 mental retardation 7 possible difficulties in swallowing, high risk for aspiration at least on clinical grounds 8 deaf and blind 9 bedridden and the patient lives in an [facility] home 10 hypothyroidism Plan Patient will be going home today with hospice care. Home O2 will be delivered. The patient is comfortable. Family is at the bedside. Family has decided not to do any interventions regarding this left-sided pleural effusion which could be essentially secondary to a pleural space infection/empyema. They do understand the situation. I will sign off the case. Transfer to home with hospice care today.
--- NOTE | 2020-09-24 15:03 | P.HPIM ---
History of Present Illness H&P Date: 09/23/20 Chief Complaint: Altered mental status, increased weakness History and Physical and Discharge Summary This is a 64-year-old gentleman with down syndrome, blind, hard of hearing, nonverbal resides at [facility] with increasing weakness, mental status change, choking on food with subsequent dry coughing as per sister and can coverer. Weakness has progressed to the extent that patient has required a wheelchair over the last 2 weeks. On admission WBC 23.4, T-max 101.5, maintaining 92% on room air , respiratory rate 20 with borderline hypotension - systolic blood pressure 90.currently requiring 3 -4L to maintain O2 sats in the 90s. Chest x-ray reported large opacification over the left hemidiaphragm on the frontal view, lower aspect of the left hemothorax not well visualized, suspicious of left lower lobe mass or large pleural effusion, tubular-like lucency over the neck. Chest CT reported a large loculated left-sided pleural effusion, increased density in the surrounding pleura possible empyema ,collapse of the left lower lobe, possible underlying pneumonia,severe narrowing of the left lingular and left lower lobe bronchus possibly due to mass effect from pleural fluid versus extraluminal mass effect or endobronchial tumor. CT [place] reporting moderate narrowing proximal M1 segment left and right MCA, origin right [employer], CSF density cysts measuring up to 3 cm stable since 2019 likely arachnoid cyst. EKG reported sinus tachycardia. History of urethral stricture, urethral dilation Han catheter insertion by urology, with UA and urine culture obtained. Tolerated procedure well. Placed on IV antibiotics of vancomycin, Zosyn. Evaluated by speech therapy with recommendations noted .Evaluated by both ID and pulmonary. Diagnostic thoracentesis recommended, regarding underlying pleural infection, possible malignancy.Sister declined procedure, and declining any further workup, or invasive procedures in respect to his multiple comorbidities, limited life expectancy with Down syndrome. Sister requesting conservative management. Requesting patient be discharged back to [facility] with hospice. 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 Past Anesthesia/Blood Transfusion Reactions: No Reported Reaction Past Psychological History: No Psychological Hx Reported Smoking Status: Never smoker Past Alcohol Use History: None Reported Past Drug Use History: None Reported - Past Family History Father Family Medical History: Coronary Artery Disease (CAD), Diabetes Mellitus Mother Family Medical History: Coronary Artery Disease (CAD), Diabetes Mellitus Medications and Allergies Home Medications Medication Instructions Recorded Confirmed Type Docusate [Colace] 200 mg PO HS@1900 02/27/17 09/22/20 History Multivitamins, Thera [Multivitamin 1 tab PO DAILY@0600 02/27/17 09/22/20 History (formulary)] Divalproex [Depakote] 250 mg PO BID@0600,189905/15/18 09/22/20 History QUEtiapine [SEROquel] 50 mg PO HS@19005/15/18 09/22/20 History ALPRAZolam [Xanax] 1 mg PO BID@0600,189909/22/20 09/22/20 History ALPRAZolam [Xanax] 1 mg PO DAILY PRN 09/22/20 09/22/20 History Citrucel 500mg 500 mg PO DAILY@0609/22/20 09/22/20 History LORazepam [Ativan] 1 mg PO BID PRN 09/22/20 09/22/20 History Levothyroxine Sodium 88 mcg PO DAILY@0609/22/20 09/22/20 History Meloxicam [Mobic] 7.5 mg PO DAILY@0609/22/20 09/22/20 History Nystatin 100,000Unit/gm Cream 1 applic TOPICAL BID@0600,189909/22/20 09/22/20 History [Mycostatin Cream] Omeprazole 40 mg PO DAILY@59909/22/20 09/22/20 History Tinactin Burton Powder 1 applic TOPICAL DAILY PRN 09/22/20 09/22/20 History Allergies Allergy/AdvReac Type Severity Reaction Status Date / Time No Known Allergies Allergy Verified 09/22/20 10:56 Physical Exam Vitals: Vital Signs Temp Pulse Pulse Resp BP BP Pulse Ox 09/23/20 08:00 99.7 F H 111 H 20 104/60 91 L 09/23/20 04:00 97.7 F 89 21 86/57 90 L 09/23/20 01:59 89/61 09/23/20 01:37 88 20 09/23/20 00:00 97.7 F 88 20 80/50 92 L 09/22/20 21:37 82/57 09/22/20 20:00 98 20 09/22/20 19:59 86/53 09/22/20 19:49 97.6 F 98 94 H 80/46 94 L 09/22/20 16:35 22 09/22/20 15:31 101.5 F H 98 20 96/50 93 L 09/22/20 14:47 92 18 102/68 93 L 09/22/20 13:47 96 20 94/64 94 L 09/22/20 13:29 97.6 F 98 20 90/47 92 L 09/22/20 11:00 20 Intake and Output 09/22/20 09/23/20 09/23/20 22:59 06:59 14:59 Intake Total 0 1150 Output Total 400 Balance 0 750 Intake: Intake, IV Titration 1150 Amount Dextrose 5%-0.45% NaCl 1, 1150 000 ml @ 100 mls/hr IV . Q10H [facility] Rx#:[id number] Oral 0 Output: Urine 400 Other: Voiding Method Urinal Indwelling Catheter Indwelling Catheter Diaper # Voids 1 # Bowel Movements 1 Weight 56.5 kg 59 kg PHYSICAL EXAM: VITAL SIGNS: [As above] GENERAL: 64-year-old gentleman with Down syndrome ,sitting up in bed, appears comfortable, calm, nonverbal,LOWER ELWHA. HEENT: Conjunctivae normal. Legally blind. Oral mucosa moist NECK: Supple, No JVD. CARDIOVASCULAR: S1, S2 regular.No murmur. RESPIRATION: Normal respiratory effort. Left base diminished. No rhonchi or crackles. No bronchial breathing. ABDOMEN: Soft, nontender . No guarding. no masses palpable. No ascites, No hepatosplenomegaly.Bowel sounds heard. LEGS: No edema. no swelling NERVOUS SYSTEM: Limited exam, unable to assess secondary to patient's condition. Skin: Warm and dry, no rash Lymphatic system. No LN neck axilla Results CBC & Chem 7: 09/23/20 07:06 09/24/20 08:00 Labs: Abnormal Lab Results - Last 24 Hours (Table) 09/22/20 09/22/20 09/22/20 Range/Units 10:42 10:42 10:42 WBC 23.4 H (3.8-10.6) k/uL RBC 3.71 L (4.30-5.90) m/uL Hgb 12.1 L (13.0-17.5) gm/dL Hct 37.5 L (39.0-53.0) % MCV 101.1 H (80.0-100.0) fL Plt Count 567 H (150-450) k/uL Neutrophils # 20.8 H (1.3-7.7) k/uL Lymphocytes # (1.0-4.8) k/uL Monocytes # (0-1.0) k/uL VBG pH (7.31-7.41) VBG pCO2 (37-51) mmHg Sodium 136 L (137-145) mmol/L BUN 23 H (9-20) mg/dL Creatinine (0.66-1.25) mg/dL Plasma Lactic Acid Niels 4.1 H* (0.7-2.0) mmol/L Calcium 8.0 L (8.4-10.2) mg/dL Alkaline Phosphatase 142 H (38-126) U/L Albumin 2.8 L (3.5-5.0) g/dL Ur Specific [place] (1.001-1.035) Urine Protein (Negative) Urine Blood (Negative) Ur Leukocyte Esterase (Negative) Urine RBC (0-5) /hpf Urine WBC (0-5) /hpf Urine Mucus (None) /hpf 09/22/20 09/22/20 09/22/20 Range/Units 13:29 14:07 21:24 WBC 19.4 H (3.8-10.6) k/uL RBC 2.83 L (4.30-5.90) m/uL Hgb 9.5 L D (13.0-17.5) gm/dL Hct 28.7 L (39.0-53.0) % MCV 101.5 H (80.0-100.0) fL Plt Count 460 H (150-450) k/uL Neutrophils # 16.8 H (1.3-7.7) k/uL Lymphocytes # 0.9 L (1.0-4.8) k/uL Monocytes # 1.4 H (0-1.0) k/uL VBG pH 7.48 H (7.31-7.41) VBG pCO2 36 L (37-51) mmHg Sodium (137-145) mmol/L BUN (9-20) mg/dL Creatinine (0.66-1.25) mg/dL Plasma Lactic Acid Niels 2.3 H* (0.7-2.0) mmol/L Calcium (8.4-10.2) mg/dL Alkaline Phosphatase (38-126) U/L Albumin (3.5-5.0) g/dL Ur Specific [place] (1.001-1.035) Urine Protein (Negative) Urine Blood (Negative) Ur Leukocyte Esterase (Negative) Urine RBC (0-5) /hpf Urine WBC (0-5) /hpf Urine Mucus (None) /hpf 09/22/20 09/23/20 09/23/20 Range/Units 22:20 07:06 07:06 WBC 23.4 H (3.8-10.6) k/uL RBC 3.38 L (4.30-5.90) m/uL Hgb 11.3 L (13.0-17.5) gm/dL Hct 35.0 L (39.0-53.0) % MCV 103.5 H (80.0-100.0) fL Plt Count 553 H (150-450) k/uL Neutrophils # 21.4 H (1.3-7.7) k/uL Lymphocytes # (1.0-4.8) k/uL Monocytes # (0-1.0) k/uL VBG pH (7.31-7.41) VBG pCO2 (37-51) mmHg Sodium 136 L (137-145) mmol/L BUN (9-20) mg/dL Creatinine 0.58 L (0.66-1.25) mg/dL Plasma Lactic Acid Niels (0.7-2.0) mmol/L Calcium 7.5 L (8.4-10.2) mg/dL Alkaline Phosphatase 182 H (38-126) U/L Albumin 2.3 L (3.5-5.0) g/dL Ur Specific [place] >1.050 H (1.001-1.035) Urine Protein Trace H (Negative) Urine Blood Trace H (Negative) Ur Leukocyte Esterase Trace H (Negative) Urine RBC 13 H (0-5) /hpf Urine WBC 6 H (0-5) /hpf Urine Mucus Rare H (None) /hpf Thrombosis Risk Factor Assmnt - Choose All That Apply Each Risk Factor Represents 2 Points: Age 61-74 years Thrombosis Risk Factor Assessment Total Risk Factor Score: 2 Thrombosis Risk Factor Assessment Level: Low Risk Assessment and Plan Assessment: Sepsis, present on admission related to left lower lobe pneumonia, large left loculated effusion, possible empyema, possible tumor, possible malignancy. Suspect aspiration pneumonia. Family declining diagnostic workup and wish for patient to return to long term with hospice. Dysphagia Leukocytosis secondary to #1 Acute hypoxic respiratory failure secondary to #1 Acute metabolic encephalopathy secondary to the #1 Down syndrome,ASD, LOWER ELWHA, Blind, primarily nonverbal Hypothyroidism No code, no CPR, no intubation Plan: Continue on current medication regime ,monitoring and symptomatic treatment. Maintain supportive care. Maintain IV antibiotics as per ID. Strict aspiration precautions. Hospice consult placed as discussed with family at bedside. Patient will be discharged home pending arrangement of hospice. Prognosis guarded given multiple medical issues. Discharge Medication List Docusate [Colace] 200 mg PO HS@189902/27/17 [History] Multivitamins, Thera [Multivitamin (formulary)] 1 tab PO DAILY@59902/27/17 [History] Divalproex [Depakote] 250 mg PO BID@599,189905/15/18 [History] QUEtiapine [SEROquel] 50 mg PO HS@189905/15/18 [History] ALPRAZolam [Xanax] 1 mg PO BID@06,189909/22/20 [History] ALPRAZolam [Xanax] 1 mg PO DAILY PRN 09/22/20 [History] Citrucel 500mg 500 mg PO DAILY@59909/22/20 [History] LORazepam [Ativan] 1 mg PO BID PRN 09/22/20 [History] Levothyroxine Sodium 88 mcg PO DAILY@59909/22/20 [History] Meloxicam [Mobic] 7.5 mg PO DAILY@59909/22/20 [History] Nystatin 100,000Unit/gm Cream [Mycostatin Cream] 1 applic TOPICAL BID@06,189921 [History] Omeprazole 40 mg PO DAILY@0600 09/22/20 [History] Tinactin Burton Powder 1 applic TOPICAL DAILY PRN 09/22/20 [History] The impression and plan of care has been dictated as directed. : I performed a history and examination of this patient, discussed the same with the dictator. I agree with the dictator's note ,documented as a scribe. Any additional findings or plans will be noted.
[2020-09-24] MEDS ORDERED: VANCOMYCIN 1,000 MG in SODIUM CHLORIDE 0.9% 250 ML IVPB SCH (20:00)
== END 2020-09-24 14:13 | disposition hospice, home (50) | DRG 871 ==
LOC: EC 10:05 → 3SCARD 14:34
PROVIDERS: ADMIT Family Medicine; ATTEND Family Medicine
PROC: 0T7D7ZZ Dilation of Urethra, Via Natural or Artificial Opening (ICD-10-PCS; principal; 2020-09-22)
PROC: 0T9B70Z Drainage of Bladder with Drainage Device, Via Natural or Artificial Opening (ICD-10-PCS; principal; 2020-09-22)
DX: A41.9 Sepsis, unspecified organism (principal); G93.41 Metabolic encephalopathy; J18.9 Pneumonia, unspecified organism; J86.9 Pyothorax without fistula; J96.01 Acute respiratory failure with hypoxia; J69.0 Pneumonitis due to inhalation of food and vomit; F84.0 Autistic disorder; J90 Pleural effusion, not elsewhere classified; J98.19 Other pulmonary collapse; E03.9 Hypothyroidism, unspecified; F79 Unspecified intellectual disabilities; H54.7 Unspecified visual loss; H91.90 Unspecified hearing loss, unspecified ear; Z51.5 Encounter for palliative care; Z66 Do not resuscitate; N35.919 Unspecified urethral stricture, male, unspecified site; H26.9 Unspecified cataract; Q90.9 Down syndrome, unspecified; R13.10 Dysphagia, unspecified; T17.928A Food in respiratory tract, part unspecified causing other injury, initial encounter; Y95 Nosocomial condition; Z20.822 Contact with and (suspected) exposure to COVID-19; Z79.1 Long term (current) use of non-steroidal anti-inflammatories (NSAID); Z79.890 Hormone replacement therapy; Z79.899 Other long term (current) drug therapy; Z82.1 Family history of blindness and visual loss; Z82.49 Family history of ischemic heart disease and other diseases of the circulatory system; Z83.3 Family history of diabetes mellitus; Z87.440 Personal history of urinary (tract) infections; Z74.01 Bed confinement status; Z89.422 Acquired absence of other left toe(s); Z89.421 Acquired absence of other right toe(s); Z53.8 Procedure and treatment not carried out for other reasons
CPT/HCPCS: 36415; 70496; 71046; 71260; 80053; 80202; 81001; 82565; 82803; 83605; 83735; 83880; 84145; 84484; 85025; 85610; 85730; 87040; 87086; 87635; 93005; 96361; 96365; 99285